=== PATIENT | female | born 1985 | race Caucasian/White ===

== ENCOUNTER 2016-05-30 11:35 | Inpatient (IN) ==
[2016-05-30] MEDS ORDERED: NS 1,000 ML IV ONE (12:24)
[2016-05-30] MEDS ORDERED: ASPIRIN PO STA (12:24)
--- NOTE | 2016-05-30 12:30 | EKG Report ---
Test Performed on : 05/30/2016 11:48:54 AM Test Reason : CHEST PAIN Blood Pressure : / mmHG Vent. Rate : 070 BPM Atrial Rate : 070 BPM P-R Int : 160 ms QRS Dur : 082 ms QT Int : 436 ms P-R-T Axes : 031 027 023 degrees QTc Int : 470 ms Normal sinus rhythm. Cannot rule out Anterior infarct , age undetermined Abnormal ECG When compared with ECG of 07-MAY-2016 16:46, CT interval has increased Vent. rate has decreased BY [address] no longer depressed in Inferior leads Non-specific change in ST segment in Lateral leads T wave inversion more evident in Anterior leads Nonspecific T wave abnormality no longer evident in Lateral leads Unconfirmed Result
[2016-05-30 12:42] LABS: MANUAL DIFF NEEDED? NO
[2016-05-30 12:45] LABS: BASO% 0.4 % (0.0-0.8); EOS# 0.12 X1000 (0.0-0.7); EOS% 2.3 % (0.0-10.0); HEMATOCRIT 36.3 % (37.0-47.0); HEMOGLOBIN 11.9 g/dL (12.0-16.0); IMM GRAN# 0.01 X1000 (0.0-0.04); IMM GRAN% 0.2 % (0.0-0.5); LYMPH# 1.62 X1000 (1.2-3.4); LYMPH% 31.2 % (20.5-51.1); MCH 28.4 PG (27-31); MCHC 32.8 g/dL (33-37); MCV 86.6 FL (81-99); MONO# 0.51 X1000 (0.11-0.59); MONO% 9.8 % (1.7-9.3); MPV 10.9 FL (7.4-10.4); NEUT% 56.1 % (42.2-75.2); PLT 269 X1000 (130-400); RBC 4.19 XMIL (4.2-5.4)
[2016-05-30 13:03] LABS: URINE CULTURE PL NEEDED? NO; URINE SOURCE CLEAN CATCH
[2016-05-30 13:03] LABS: AGAP 12; ALKALINE PHOSPHATASE 73 U/L (32-104); BUN 10 mg/dL (8-22); CALCIUM 9.5 mg/dL (8.8-10.2); CHLORIDE 99 mmol/L (98-107); CK PROFILE 47 U/L (24-173); COSMO 271; GOT 25 U/L (10-30); GPT 22 U/L (10-36); MAGNESIUM 1.8 mg/dL (1.5-2.7); POTASSIUM 4.2 mmol/L (3.5-5.1); SODIUM 136 mmol/L (136-145); TCO2 25 mmol/L (25-35); TOTAL PROTEIN 7.4 g/dL (6.3-8.3)
[2016-05-30 13:24] LABS: BILIRUBIN URINE NEGATIVE (NEGATIVE); BLOOD URINE NEGATIVE (NEGATIVE); CLARITY CLEAR (CLEAR); COLOR YELLOW; GLUCOSE URINE NEGATIVE (NEGATIVE); LEUKOCYTES URINE NEGATIVE (NEGATIVE); NITRITE URINE NEGATIVE (NEGATIVE); PROTEIN URINE NEGATIVE (NEGATIVE); UROBILINOGEN URINE NORMAL
[2016-05-30 13:28] LABS: URINE EPITHELIAL CELLS <10 /HPF (<10)
[2016-05-30 13:32] LABS: UR AMPHETAMINES QUAL NONE DETECTED (NONE DETECT); UR BARBITUATES QUAL NONE DETECTED (NONE DETECT); UR BENZODIAZEPIN QUAL NONE DETECTED (NONE DETECT); UR CANNABINOIDS QUAL NONE DETECTED (NONE DETECT); UR COCAINE QUAL NONE DETECTED (NONE DETECT); UR MDMA QUAL NONE DETECTED (NONE DETECT); UR METHADONE QUAL NONE DETECTED (NONE DETECT); UR METHAMPHETAMINE QUAL NONE DETECTED (NONE DETECT); UR OPIATES QUAL PRESUMPTIVE POSITIVE (NONE DETECT); UR OXYCODONE QUAL NONE DETECTED (NONE DETECT); UR PCP QUAL NONE DETECTED (NONE DETECT); UR TCA QUAL NONE DETECTED (NONE DETECT)
--- NOTE | 2016-05-30 13:35 | Diag Imaging Result Document ---
PROCEDURE NAME: CHEST-2 VIEWS - 05/30/2016 2 VIEWS OF THE CHEST: FINDINGS: There is opacification in the left lower lobe which has not changed appreciably since 05/20/2016. This may be associated with some retraction of the diaphragm. There is also a prominent epicardial fat pad on the left. Compared to 05/07/2016 the opacity in the left lower lobe is somewhat more limited in size. IMPRESSION: Left lower lobe opacity which has changed very little since 05/07/2016. Some of this may be due to fibrosis or round atelectasis. Further radiographic follow up is recommended.
--- NOTE | 2016-05-30 13:54 | PROVIDER DOCUMENTATION ---
Addendum entered and electronically signed by Dorothea Richard Scribe 05/30/16 17:27 : Progress - ULTRASOUND (By Radiology) 1 US Study: Lower Ext (venous bilateral) Impression: Abnormal US Results: L leg below the knee - multiple DVTs; R leg - negative for DVT per Dr. Rice Addendum entered and electronically signed by Bharati Rice MD 05/30/16 16:13: Additional Progress - ADDITIONAL PLAN OF CARE/RESULTS Additional Progress/Plan/Lab Results: Dr. Branham agrees with ER management plan for the high dose Heparin drip. Will admit to ICU. Addendum entered and electronically signed by Dorothea Richard Scribe 05/30/16 16:10 : Progress - CONSULTS/PCP/HOSPITALIST Notification #1 *Consult/PCP/Hospitalist*: Dr. Branham Time Discussed: 16:08 (Dr. Branham accepted admit ) Reason/Comments: Dr. Rice consulted Dr. Branham about admit of Pt Consult Disposition: Admit Original Note: HPI-Chest Pain - General Source: patient - History of Present Illness-CP Location: reports: central Chest Pain Radiation: reports: no radiation Quality of Pain: reports: pressure Severity in ED: mild Onset/Duration: 4-6 hours ago Timing: still present Context/Activities at Onset: reports: light activity Modifying Factors: improves with: nothing Associated Symptoms: reports: headache, shortness of breath. denies: abdominal pain, back pain, diaphoresis, dizziness, edema, fatigue, fever/chills, heartburn , nausea, rash, swelling/lump in chest, syncope, vomiting, weakness Nitro Today/Relief: no nitro taken today Aspirin Treatment Today: no aspirin today Prior Chest Pain/Cardiac Workup: reports: no prior chest pain, no prior cardiac workup Similar Symptoms Previously?: No Recently Seen Here or By Another Healthcare Provider: No <Dorothea Richard - Last Filed: 05/30/16 15:28> <Bharati Rice - Last Filed: 05/30/16 16:08> - General Chief Complaint: General Adult Stated Complaint: HIGH BP Time Seen by Provider: 05/30/16 12:23 Allergies/Adverse Reactions: Patient Allergies Allergy/AdvReac Type Severity Reaction Status Date / Time amoxicillin [Amoxicillin] Allergy Intermediate RASH Verified 05/07/16 16:56 ibuprofen Allergy Intermediate SWELLING Verified 05/07/16 16:56 egg Allergy Unknown Verified 05/07/16 16:56 influenza virus vaccine, Allergy SWELLING Verified 05/07/16 16:56 specific [influenza virus vacc,specific] ketorolac tromethamine * Allergy SWELLING Verified 05/07/16 16:56 [From Toradol] meperidine HCl * Allergy NAUSEA/VOMI Verified 05/07/16 16:56 [From Demerol] TING midazolam HCl * [From Versed] Allergy SWELLING Verified 05/07/16 16:56 Penicillins Allergy SWELLING Verified 05/07/16 16:56 prochlorperazine Allergy SWELLING Verified 05/07/16 16:56 [From Compazine] prochlorperazine edisylate * Allergy SWELLING Verified 05/07/16 16:56 [From Compazine] prochlorperazine maleate * Allergy SWELLING Verified 05/07/16 16:56 [From Compazine] promethazine HCl * Allergy RASH Verified 05/07/16 16:56 [From Phenergan] propofol Allergy SWELLING Verified 05/07/16 16:56 tramadol HCl * [From Ultram] Allergy Unknown Verified 05/07/16 16:56 morphine AdvReac HIVES Verified 05/30/16 13:01 nalbuphine HCl * AdvReac Unknown Verified 05/07/16 16:56 [From Nubain] Home Medications: Home Medication List Medication Instructions Recorded Confirmed Last Taken Type Albuterol Sulfate Inhaler 2 puff INH Q6H PRN PRN 05/31/15 05/07/16 07/11/15 15: 00 History [Ventolin Hfa] Clonazepam [Klonopin] 0.5 mg PO BID 07/13/15 05/07/16 12/12/15 History Lisinopril 10 mg PO DAILY 07/13/15 05/07/16 12/12/15 History Ranitidine HCl [Zantac 75] 1 tab PO DAILY 07/13/15 05/07/16 07/13/15 07:30 History Vortioxetine Hydrobromide 10 mg PO DAILY 07/13/15 05/07/16 10/19/15 05:30 History [Brintellix] Rtdnx-7-Ejvrzqjdpf Inhibitor 1,000 mg IV DIRECTED 12/12/15 05/07/16 Unknown History [Zemaira] Baclofen 20 mg PO Q8H PRN PRN 12/12/15 05/07/16 Unknown History Divalproex E.r. [Depakote ER] 250 mg PO DAILY 12/12/15 05/07/16 Unknown History Loratadine [Claritin] 10 mg PO DAILY 12/12/15 05/07/16 12/12/15 History Topiramate [Topamax] 100 mg PO BID 12/12/15 05/07/16 Unknown History Hydrocodone/Acetaminophen [[place] 1 each PO Q4-6H PRN PRN #20 tablet 01/12/1609/15 Unknown Rx 5-325 Tablet] Butalb/Acetaminophen/Caffeine 1 each PO 2-4XDAY PRN PRN #30 02/11/16 05/07/16 Unknown Rx [Esgic 50-325-40 mg Tablet] tablet Ondansetron HCl [Zofran] 1 - 2 tab PO Q6H PRN PRN #15 tablet 02/11/16 05/07/16 Unknown Rx Acetaminophen with Codeine 1 each PO TID #12 tablet 05/07/16 Unknown Rx [Tylenol with Codeine #3] Levofloxacin [Levaquin] 750 mg PO DAILY #10 tablet 05/07/16 Unknown Rx Metronidazole [Flagyl] 500 mg PO BID #20 tablet 05/07/16 Unknown Rx Furosemide [Lasix] 40 mg PO DAILY #30 tablet 05/20/16 Unknown Rx - History of Present Illness-CP Nature of Presenting Problem: Pt is 30 y/o F presents to the ED with chest pain. Pt states she was driving when CP started. Pt states hx of anxiety. Pt denies N/V/D. (Dorothea Richard) Review of Systems - Adult - REVIEW OF SYSTEMS - ADULT Constitutional: denies: chills, fever Eyes: denies: blurred vision, double vision Ears, Nose, Mouth & Throat: denies: ear pain, nose pain, throat pain Cardiovascular: reports: chest pain. denies: heart murmur, irregular heart rate Respiratory: reports: shortness of breath. denies: cough, wheezing Gastrointestinal: denies: abdominal pain, diarrhea, nausea, vomiting Genitourinary: denies: dysuria, hematuria Musculoskeletal: denies: bone pain, joint pain, neck pain Integumentary: denies: hives, itching Neurological: reports: headache/migraines (ABAD). denies: dizziness/vertigo Psychiatric: reports: no symptoms reported Endocrine: reports: no symptoms reported Hematologic/Lymphatic: reports: no symptoms reported Allergic/Immunologic: reports: no symptoms reported All Other Systems: Reviewed and Negative <Dorothea Richard - Last Filed: 05/30/16 15:28> Past History - Adult - PAST MEDICAL HISTORY-ADULT Review of Records: reports: Nursing Assessment Review, Medications Reviewed, Social history reviewed & non-contributory. Major Childhood Illnesses: reports: denies history Cardiovascular: reports: HTN Respiratory: reports: asthma, COPD, other (alpha 1) Gastrointestinal: reports: denies history Obstetrical/Gynecological: reports: denies history Genitourinary: reports: denies history Musculoskeletal: reports: denies history Neurological: reports: denies history Psychiatric: reports: anxiety, ptsd, other (panic attack) Endocrine/Immune: reports: denies history Other Conditions: reports: denies history - PRIOR SURGERIES/PROCEDURES Surgical/Procedure History: reports: reviewed, not pertinent, BTL - PRIOR HOSPITALIZATIONS Prior Hospitalizations: reports: none - IMMUNIZATION STATUS Childhood Immunizations: See Nurse Assessment Flu Vaccine: See Nurse Assessment - FAMILY HISTORY Family History: reviewed, not pertinent - SOCIAL HISTORY Smoking: quit greater than 1 year, cigarettes Provider spent 3-5 mins advising pt. on dangers of tobacco.: Discussed manners to quit use, and f/u contacts for add'l counseling. Substance Use: alcohol Alcohol Use Frequency: occasionally Number of drinks per typical drinking period:: 2 drinks Living Situation: family <Dorothea Richard - Last Filed: 05/30/16 15:28> Physical Exam-General - PHYSICAL EXAM-ADULT Initial Vital Signs Reviewed: Yes - CONSTITUTIONAL General Appearance: appears well, alert, no apparent distress - EYES Eyes: PERRL/EOMI, pink conjunctivae, fundi clear, no AV nicking - HEAD, EARS, NOSE, MOUTH & THROAT HENMT: normocephalic/atraumatic, moist mucous membranes, normal ENT inspection, TMs normal, pharynx normal - NECK Neck: non-tender, full range of motion, supple, normal inspection - RESPIRATORY Respiratory: chest non-tender, lungs clear, normal breath sounds, no pleuratic chest pain, no respiratory distress, no accessory muscle use - CARDIOVASCULAR Cardiovascular: normal peripheral pulses, regular rate, rhythm, no edema, no gallop, no JVD, no murmur - GASTROINTESTINAL (ABDOMEN) Abdominal Exam: normal bowel sounds, non tender, soft, no organomegaly, no pulsatile mass - LYMPHATIC Lymphatic: no adenopathy - MUSCULOSKELETAL Back Exam: normal inspection, no CVA tenderness, no vertebral tenderness Extremity: normal range of motion, non-tender, normal gait, normal inspection, no pedal edema, no calf tenderness, normal capillary refill, pelvis stable - SKIN Integumentary: normal color, normal turgor, warm/dry - NEUROLOGIC Neurologic: 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, grossly normal, no motor/sensory deficits - PSYCHIATRIC Psych/Mental Status: normal mood/affect, normal thought content, normal thought process, oriented x 3 <Dorothea Richard - Last Filed: 05/30/16 15:28> Progress - EKG 1 Time of EKG reading by physician:: 11:48 EKG Read and Signed by:: Bharati Rice EKG Interpretation (*Must complete 3 of following elements*): Abnormal Rate: 70 Rhythm: normal sinus rhythm Comments: cannot rule out anterior infarct, age undetermined - XRAY 1 XRAY: Bilateral XRAY Study: Chest Impression: Normal Comparison with other Films: no changes XRAY Interpretation: persistent LLL opacity from 05/07/16 <Dorothea Richard - Last Filed: 05/30/16 15:28> - REASSESSMENT Reassessment #1 Time Reassessed: 16:04 Status: other (Pt will be admitted for b/l PE. Pt refused CT head for headache because she had one done < one month ago and it was notmal. Pt requested pain meds for migranine, which she has h/o. Pt has 1gm Tylenol earlier today. Morphine IV given.) - CT/MRI 2 CT Study: Angiogram (CT chest PE study - b/l large PE per Radiology.) - CONSULTS/PCP/HOSPITALIST Notification Time Discussed: 16:07 Reason/Comments: Admit to Dr. Branham Consult Disposition: Admit <Bharati Rice - Last Filed: 05/30/16 16:08> - PLAN OF CARE/RESULTS Progress/Plan/Lab Results: Laboratory Tests 05/30/16 05/30/16 05/30/16 12:34 12:34 12:34 WBC RBC Hgb Hct MCV MCH MCHC RDW Std Deviation Plt Count MPV Immature Gran % (Auto) Neut % (Auto) Lymph % (Auto) [place] % (Auto) Eos % (Auto) Baso % (Auto) Immature Gran # (Auto) Neut # (Auto) Lymph # (Auto) [place] # (Auto) Eos # (Auto) Baso # (Auto) Sodium 136 Potassium 4.2 Chloride 99 Carbon Dioxide 25 Anion Gap 12 BUN 10 Creatinine 0.7 Estimated GFR/1.73 m2 > 60 BUN/Creatinine Ratio 14 Glucose 94 Calculated Osmolality 271 Calcium 9.5 Magnesium 1.8 Total Bilirubin 0.30 AST 25 ALT 22 Alkaline Phosphatase 73 Creatine Kinase 47 Troponin T < 0.010 Rzu-M-Yanispnbeag Pept 161 Total Protein 7.4 Albumin 4.0 Globulin 3.0 Albumin/Globulin Ratio 1.0 Urine Source Urine Color Urine Clarity Urine pH Ur Specific [place] Urine Protein Urine Ketones Urine Blood Urine Nitrite Urine Bilirubin Urine Urobilinogen Urine Microscopic RBC Urine WBC Ur Epithelial Cells Urine Glucose Urine Test Urine Opiates Screen Ur Oxycodone Screen Urine Methadone Screen Ur Barbituates Screen Ur Tricyclics Screen Ur Phencyclidine Scrn Ur Amphetamines Screen U Methamphetamines Scrn Urine MDMA Screen U Benzodiazepines Scrn Urine Cocaine Screen U Cannabinoids Screen 05/30/16 05/30/16 05/30/16 12:34 12:55 Unknown WBC 5.19 RBC 4.19 L Hgb 11.9 L Hct 36.3 L MCV 86.6 MCH 28.4 MCHC 32.8 L RDW Std Deviation 12.0 Plt Count 269 MPV 10.9 H Immature Gran % (Auto) 0.2 Neut % (Auto) 56.1 Lymph % (Auto) 31.2 [place] % (Auto) 9.8 H Eos % (Auto) 2.3 Baso % (Auto) 0.4 Immature Gran # (Auto) 0.01 Neut # (Auto) 2.91 Lymph # (Auto) 1.62 [place] # (Auto) 0.51 Eos # (Auto) 0.12 Baso # (Auto) 0.02 Sodium Potassium Chloride Carbon Dioxide Anion Gap BUN Creatinine Estimated GFR/1.73 m2 BUN/Creatinine Ratio Glucose Calculated Osmolality Calcium Magnesium Total Bilirubin AST ALT Alkaline Phosphatase Creatine Kinase Troponin T Imt-T-Kxgsabgowfc Pept Total Protein Albumin Globulin Albumin/Globulin Ratio Urine Source CLEAN CATCH Urine Color YELLOW Urine Clarity CLEAR Urine pH 7.0 Ur Specific [place] 1.000 Urine Protein NEGATIVE Urine Ketones NEGATIVE Urine Blood NEGATIVE Urine Nitrite NEGATIVE Urine Bilirubin NEGATIVE Urine Urobilinogen NORMAL Urine Microscopic RBC Not Reportable Urine WBC NEGATIVE Ur Epithelial Cells <10 Urine Glucose NEGATIVE Urine Test NEGATIVE Urine Opiates Screen Ur Oxycodone Screen Urine Methadone Screen Ur Barbituates Screen Ur Tricyclics Screen Ur Phencyclidine Scrn Ur Amphetamines Screen U Methamphetamines Scrn Urine MDMA Screen U Benzodiazepines Scrn Urine Cocaine Screen U Cannabinoids Screen 05/30/16 Unknown WBC RBC Hgb Hct MCV MCH MCHC RDW Std Deviation Plt Count MPV Immature Gran % (Auto) Neut % (Auto) Lymph % (Auto) [place] % (Auto) Eos % (Auto) Baso % (Auto) Immature Gran # (Auto) Neut # (Auto) Lymph # (Auto) [place] # (Auto) Eos # (Auto) Baso # (Auto) Sodium Potassium Chloride Carbon Dioxide Anion Gap BUN Creatinine Estimated GFR/1.73 m2 BUN/Creatinine Ratio Glucose Calculated Osmolality Calcium Magnesium Total Bilirubin AST ALT Alkaline Phosphatase Creatine Kinase Troponin T Uuy-E-Dugiwzsivzg Pept Total Protein Albumin Globulin Albumin/Globulin Ratio Urine Source Urine Color Urine Clarity Urine pH Ur Specific [place] Urine Protein Urine Ketones Urine Blood Urine Nitrite Urine Bilirubin Urine Urobilinogen Urine Microscopic RBC Urine WBC Ur Epithelial Cells Urine Glucose Urine Test Urine Opiates Screen PRESUMPTIVE POSITIVE A Ur Oxycodone Screen NONE DETECTED Urine Methadone Screen NONE DETECTED Ur Barbituates Screen NONE DETECTED Ur Tricyclics Screen NONE DETECTED Ur Phencyclidine Scrn NONE DETECTED Ur Amphetamines Screen NONE DETECTED U Methamphetamines Scrn NONE DETECTED Urine MDMA Screen NONE DETECTED U Benzodiazepines Scrn NONE DETECTED Urine Cocaine Screen NONE DETECTED U Cannabinoids Screen NONE DETECTED Orders Category Date Time Status Cardiac Monitoring DIRECTED Care 05/30/16 12:25 Active Saline Loc NOW Care 05/30/16 12:25 Active CHEST-2 VIEWS [RAD] Stat Exams 05/30/16 12:25 Completed CBC WITH ELECTRONIC DIFF [HEME] Stat Lab 05/30/16 12:34 Completed CK PROFILE [SP CHEM] Stat Lab 05/30/16 12:34 Completed COMPREHENSIVE METABOLIC PANEL [CHEM] Stat Lab 05/30/16 12:34 Completed D-DIMER PL [COAG] Stat Lab 05/30/16 12:34 Received MAGNESIUM [CHEM] Stat Lab 05/30/16 12:34 Completed TEST-URINE [PREG] Stat Lab 05/30/16 Completed PRO B-NATRIURETIC PEPTIDE Stat Lab 05/30/16 12:34 Completed TROPONIN T Stat Lab 05/30/16 12:[address] W/POSS RFLX CULT [URINALYSIS] Stat Lab 05/30/16 12:55 Completed URINE DRUG SCREEN PL Stat Lab 05/30/16 Completed 0.9% Sodium Chloride Inj [Ns] 1,000 ml Med 05/30/16 12:24 Discontinued IV 999 mls/hr Aspirin Med 05/30/16 12:24 Discontinued 325 mg PO STAT STA EKG [EKG] Stat Ther 05/30/16 12:25 Draft Vital Signs - 24 hr 05/30/16 11:42 Temperature 97.9 F Pulse Rate 81 Respiratory 18 Rate Blood Pressure 126/61 O2 Sat by Pulse 100 Oximetry Laboratory Tests 05/30/16 05/30/16 05/30/16 12:34 12:34 12:34 WBC RBC Hgb Hct MCV MCH MCHC RDW Std Deviation Plt Count MPV Immature Gran % (Auto) Neut % (Auto) Lymph % (Auto) [place] % (Auto) Eos % (Auto) Baso % (Auto) Immature Gran # (Auto) Neut # (Auto) Lymph # (Auto) [place] # (Auto) Eos # (Auto) Baso # (Auto) Sodium 136 Potassium 4.2 Chloride 99 Carbon Dioxide 25 Anion Gap 12 BUN 10 Creatinine 0.7 Estimated GFR/1.73 m2 > 60 BUN/Creatinine Ratio 14 Glucose 94 Calculated Osmolality 271 Calcium 9.5 Magnesium 1.8 Total Bilirubin 0.30 AST 25 ALT 22 Alkaline Phosphatase 73 Creatine Kinase 47 Troponin T < 0.010 Mjh-L-Wpakzrwdfqj Pept 161 Total Protein 7.4 Albumin 4.0 Globulin 3.0 Albumin/Globulin Ratio 1.0 Urine Source Urine Color Urine Clarity Urine pH Ur Specific [place] Urine Protein Urine Ketones Urine Blood Urine Nitrite Urine Bilirubin Urine Urobilinogen Urine Microscopic RBC Urine WBC Ur Epithelial Cells Urine Glucose Urine Test Urine Opiates Screen Ur Oxycodone Screen Urine Methadone Screen Ur Barbituates Screen Ur Tricyclics Screen Ur Phencyclidine Scrn Ur Amphetamines Screen U Methamphetamines Scrn Urine MDMA Screen U Benzodiazepines Scrn Urine Cocaine Screen U Cannabinoids Screen 05/30/16 05/30/1605/30/17 12:34 12:55 Unknown WBC 5.19 RBC 4.19 L Hgb 11.9 L Hct 36.3 L MCV 86.6 MCH 28.4 MCHC 32.8 L RDW Std Deviation 12.0 Plt Count 269 MPV 10.9 H Immature Gran % (Auto) 0.2 Neut % (Auto) 56.1 Lymph % (Auto) 31.2 [place] % (Auto) 9.8 H Eos % (Auto) 2.3 Baso % (Auto) 0.4 Immature Gran # (Auto) 0.01 Neut # (Auto) 2.91 Lymph # (Auto) 1.62 [place] # (Auto) 0.51 Eos # (Auto) 0.12 Baso # (Auto) 0.02 Sodium Potassium Chloride Carbon Dioxide Anion Gap BUN Creatinine Estimated GFR/1.73 m2 BUN/Creatinine Ratio Glucose Calculated Osmolality Calcium Magnesium Total Bilirubin AST ALT Alkaline Phosphatase Creatine Kinase Troponin T Gws-M-Qvhscrrbvny Pept Total Protein Albumin Globulin Albumin/Globulin Ratio Urine Source CLEAN CATCH Urine Color YELLOW Urine Clarity CLEAR Urine pH 7.0 Ur Specific [place] 1.000 Urine Protein NEGATIVE Urine Ketones NEGATIVE Urine Blood NEGATIVE Urine Nitrite NEGATIVE Urine Bilirubin NEGATIVE Urine Urobilinogen NORMAL Urine Microscopic RBC Not Reportable Urine WBC NEGATIVE Ur Epithelial Cells <10 Urine Glucose NEGATIVE Urine Test NEGATIVE Urine Opiates Screen Ur Oxycodone Screen Urine Methadone Screen Ur Barbituates Screen Ur Tricyclics Screen Ur Phencyclidine Scrn Ur Amphetamines Screen U Methamphetamines Scrn Urine MDMA Screen U Benzodiazepines Scrn Urine Cocaine Screen U Cannabinoids Screen 05/30/16 Unknown WBC RBC Hgb Hct MCV MCH MCHC RDW Std Deviation Plt Count MPV Immature Gran % (Auto) Neut % (Auto) Lymph % (Auto) [place] % (Auto) Eos % (Auto) Baso % (Auto) Immature Gran # (Auto) Neut # (Auto) Lymph # (Auto) [place] # (Auto) Eos # (Auto) Baso # (Auto) Sodium Potassium Chloride Carbon Dioxide Anion Gap BUN Creatinine Estimated GFR/1.73 m2 BUN/Creatinine Ratio Glucose Calculated Osmolality Calcium Magnesium Total Bilirubin AST ALT Alkaline Phosphatase Creatine Kinase Troponin T Ygk-L-Xcllyglegjl Pept Total Protein Albumin Globulin Albumin/Globulin Ratio Urine Source Urine Color Urine Clarity Urine pH Ur Specific [place] Urine Protein Urine Ketones Urine Blood Urine Nitrite Urine Bilirubin Urine Urobilinogen Urine Microscopic RBC Urine WBC Ur Epithelial Cells Urine Glucose Urine Test Urine Opiates Screen PRESUMPTIVE POSITIVE A Ur Oxycodone Screen NONE DETECTED Urine Methadone Screen NONE DETECTED Ur Barbituates Screen NONE DETECTED Ur Tricyclics Screen NONE DETECTED Ur Phencyclidine Scrn NONE DETECTED Ur Amphetamines Screen NONE DETECTED U Methamphetamines Scrn NONE DETECTED Urine MDMA Screen NONE DETECTED U Benzodiazepines Scrn NONE DETECTED Urine Cocaine Screen NONE DETECTED U Cannabinoids Screen NONE DETECTED Laboratory Tests 05/30/16 05/30/16 05/30/16 12:34 12:34 12:34 WBC RBC Hgb Hct MCV MCH MCHC RDW Std Deviation Plt Count MPV Immature Gran % (Auto) Neut % (Auto) Lymph % (Auto) [place] % (Auto) Eos % (Auto) Baso % (Auto) Immature Gran # (Auto) Neut # (Auto) Lymph # (Auto) [place] # (Auto) Eos # (Auto) Baso # (Auto) D-Dimer Sodium 136 Potassium 4.2 Chloride 99 Carbon Dioxide 25 Anion Gap 12 BUN 10 Creatinine 0.7 Estimated GFR/1.73 m2 > 60 BUN/Creatinine Ratio 14 Glucose 94 Calculated Osmolality 271 Calcium 9.5 Magnesium 1.8 Total Bilirubin 0.30 AST 25 ALT 22 Alkaline Phosphatase 73 Creatine Kinase 47 Troponin T < 0.010 Ihh-D-Sxfvyqimbdm Pept 161 Total Protein 7.4 Albumin 4.0 Globulin 3.0 Albumin/Globulin Ratio 1.0 Urine Source Urine Color Urine Clarity Urine pH Ur Specific [place] Urine Protein Urine Ketones Urine Blood Urine Nitrite Urine Bilirubin Urine Urobilinogen Urine Microscopic RBC Urine WBC Ur Epithelial Cells Urine Glucose Urine Test Urine Opiates Screen Ur Oxycodone Screen Urine Methadone Screen Ur Barbituates Screen Ur Tricyclics Screen Ur Phencyclidine Scrn Ur Amphetamines Screen U Methamphetamines Scrn Urine MDMA Screen U Benzodiazepines Scrn Urine Cocaine Screen U Cannabinoids Screen 05/30/16 05/30/16 05/30/16 12:34 12:34 12:55 WBC 5.19 RBC 4.19 L Hgb 11.9 L Hct 36.3 L MCV 86.6 MCH 28.4 MCHC 32.8 L RDW Std Deviation 12.0 Plt Count 269 MPV 10.9 H Immature Gran % (Auto) 0.2 Neut % (Auto) 56.1 Lymph % (Auto) 31.2 [place] % (Auto) 9.8 H Eos % (Auto) 2.3 Baso % (Auto) 0.4 Immature Gran # (Auto) 0.01 Neut # (Auto) 2.91 Lymph # (Auto) 1.62 [place] # (Auto) 0.51 Eos # (Auto) 0.12 Baso # (Auto) 0.02 D-Dimer 6.74 H Sodium Potassium Chloride Carbon Dioxide Anion Gap BUN Creatinine Estimated GFR/1.73 m2 BUN/Creatinine Ratio Glucose Calculated Osmolality Calcium Magnesium Total Bilirubin AST ALT Alkaline Phosphatase Creatine Kinase Troponin T Sdq-H-Lxgbcmviofp Pept Total Protein Albumin Globulin Albumin/Globulin Ratio Urine Source CLEAN CATCH Urine Color YELLOW Urine Clarity CLEAR Urine pH 7.0 Ur Specific [place] 1.000 Urine Protein NEGATIVE Urine Ketones NEGATIVE Urine Blood NEGATIVE Urine Nitrite NEGATIVE Urine Bilirubin NEGATIVE Urine Urobilinogen NORMAL Urine Microscopic RBC Not Reportable Urine WBC NEGATIVE Ur Epithelial Cells <10 Urine Glucose NEGATIVE Urine Test Urine Opiates Screen Ur Oxycodone Screen Urine Methadone Screen Ur Barbituates Screen Ur Tricyclics Screen Ur Phencyclidine Scrn Ur Amphetamines Screen U Methamphetamines Scrn Urine MDMA Screen U Benzodiazepines Scrn Urine Cocaine Screen U Cannabinoids Screen 05/30/16 05/30/16 Unknown Unknown WBC RBC Hgb Hct MCV MCH MCHC RDW Std Deviation Plt Count MPV Immature Gran % (Auto) Neut % (Auto) Lymph % (Auto) [place] % (Auto) Eos % (Auto) Baso % (Auto) Immature Gran # (Auto) Neut # (Auto) Lymph # (Auto) [place] # (Auto) Eos # (Auto) Baso # (Auto) D-Dimer Sodium Potassium Chloride Carbon Dioxide Anion Gap BUN Creatinine Estimated GFR/1.73 m2 BUN/Creatinine Ratio Glucose Calculated Osmolality Calcium Magnesium Total Bilirubin AST ALT Alkaline Phosphatase Creatine Kinase Troponin T Zoc-V-Sjnpceaqmdi Pept Total Protein Albumin Globulin Albumin/Globulin Ratio Urine Source Urine Color Urine Clarity Urine pH Ur Specific [place] Urine Protein Urine Ketones Urine Blood Urine Nitrite Urine Bilirubin Urine Urobilinogen Urine Microscopic RBC Urine WBC Ur Epithelial Cells Urine Glucose Urine Test NEGATIVE Urine Opiates Screen PRESUMPTIVE POSITIVE A Ur Oxycodone Screen NONE DETECTED Urine Methadone Screen NONE DETECTED Ur Barbituates Screen NONE DETECTED Ur Tricyclics Screen NONE DETECTED Ur Phencyclidine Scrn NONE DETECTED Ur Amphetamines Screen NONE DETECTED U Methamphetamines Scrn NONE DETECTED Urine MDMA Screen NONE DETECTED U Benzodiazepines Scrn NONE DETECTED Urine Cocaine Screen NONE DETECTED U Cannabinoids Screen NONE DETECTED (Dorothea Richard) Departure - Departure Time of Disposition Order: 14:43 Certified Medical Emergency: Emergent <Dorothea Richard - Last Filed: 05/30/16 15:28> - Departure Time of Disposition Order: 16:02 Certified Medical Emergency: Emergent <Bharati Rice - Last Filed: 05/30/16 16:08> - Departure DIAGNOSIS: Atypical chest pain, Anxiety Pulmonary emboli Qualifiers: Pulmonary embolism type: other Chronicity: acute Acute cor pulmonale presence: without acute cor pulmonale Qualified Code(s): I26.99 - Other pulmonary embolism without acute cor pulmonale Disposition: ADMITTED INPATIENT 09 Condition: Serious Additional Instructions: ED Follow Up Instructions: You have been treated by a care provider in the Emergency Department. These instructions are being provided to you so you can have an understanding of how to care for yourself upon discharge. Upon discharge from the Emergency Department, you are responsible for making arrangements for follow-up care by a physician of your choice. Take all prescribed medications as directed. Return to the Emergency Department immediately for any new or worsening symptoms. You may call the Physician Referral phone number at [phone] to obtain a list of Physicians who are taking new patients. Referrals: Isabel Tilley [Primary Care Provider] - Forms: Return to School/Parent Work Instructions: Panic Attacks, Ddtj-vd-Ckqi, Nonspecific Chest Pain Attestation - Scribe Verification/Attestation Scribe:: Dorothea Richard Acting as Scribe for:: Bharati Rice Scribe documention review:: This chart was documented by a scribe and accurately reflects the service the provider performed and the decisions made by the provider. <Dorothea Richard - Last Filed: 05/30/16 15:28> Physician Attestation
[2016-05-30] MEDS ORDERED: TYLENOL PO ONE (14:08)
[2016-05-30] MEDS ORDERED: ATIVAN PO ONE (14:08)
[2016-05-30] MEDS ORDERED: ULTRAM ONE (15:57)
[2016-05-30] MEDS ORDERED: HEPARIN 25,000 UNITS/D5W 250 ML ONE (16:01)
[2016-05-30] MEDS ORDERED: HEPARIN ONE (16:02)
[2016-05-30] MEDS ORDERED: HEPARIN IV ONE (16:11)
[2016-05-30] MEDS ORDERED: HEPARIN 25,000 UNITS/D5W 250 ML IV SCH (16:15)
[2016-05-30 16:37] LABS: INR 0.91 (0.86-1.15); PROTIME 12.6 Seconds (12.1-15.5)
--- NOTE | 2016-05-30 16:41 | Diag Imaging Result Document ---
PROCEDURE NAME: ANGIOGRAM/PULMONARY ARTERIES - 05/30/2016 CT ANGIOGRAM OF THE PULMONARY ARTERIES WITH IV CONTRAST: INDICATION: Chest pain and elevated D-dimer. FINDINGS: There is appropriate opacification of the pulmonary arteries. There are large proximal filling defects within the main pulmonary arteries bilaterally extending into the segmental branches consistent with acute bilateral pulmonary emboli. There is a small left effusion. There is increased peripheral attenuation within the left lower lobe and peripheral left upper lobe consistent with atelectasis, infarct, or hemorrhage. No pneumothorax. No evidence for aortic aneurysm or dissection. There is borderline cardiomegaly. There is incidental cholelithiasis only partially visualized on this study. Verbal report was given to Dr. Rice at 3:55 p.m. on 05/30/2016 with read back verification. IMPRESSION: 1. Large proximal bilateral pulmonary emboli. 2. Peripheral pulmonary consolidation in the left upper and left lower lobes which may represent atelectasis, hemorrhage or infarct. 3. Small left effusion. 4. Incidental cholelithiasis. [facility]
[2016-05-30] MEDS ORDERED: NORCO-10 ONE (16:59)
[2016-05-30 17:44] LABS: PTT HEPARIN PROTOCOL PL 29.7 Seconds
[2016-05-30] MEDS ORDERED: NORCO-10 PO ONE (17:53)
[2016-05-30] MEDS ORDERED: MORPHINE IV PRN (19:11)
[2016-05-30] MEDS ORDERED: MORPHINE IV ONE (19:11)
[2016-05-30] MEDS ORDERED: DUONEB (A & A) INH PRN (20:42)
[2016-05-30] MEDS ORDERED: TYLENOL PO PRN (20:42)
--- NOTE | 2016-05-30 20:47 | HISTORY AND PHYSICAL ---
SUBJECTIVE: Patient has no focal complaints. CHIEF COMPLAINT: Chest pain, shortness of breath. HISTORY OF PRESENT ILLNESS: This is a 30-year-old female with alpha 1 antitrypsin deficiency who came in from home with acute shortness of breath and hypoxia. She was evaluated in the ER with chest pain, had a very elevated D-dimer and CTA revealed a pulmonary embolus. Apparently, she was driving when the chest pains started. It was right-sided, radiating to the back. She does have a history of anxiety. Apparently 2-3 weeks ago she was started on Lopressor. It caused significant swelling or at least that was attributing her swelling. Per her significant other, he states that she really was not able to get out of bed. Essentially she was bed-bound for several days. She had swelling in her legs. Gradually that resolved over the last 2 weeks, but she did have a prolonged episode of immobilization and getting up and around was difficult. Patient is not on any hormonal supplements, she does not use tobacco and there is no family history of DVT. Workup in the ER again revealed acute bilateral PE with pulmonary infarcts and she was admitted for treatment. PAST MEDICAL HISTORY: 1. COPD alpha 1 anti trypsin deficiency. 2. Migraines. 3. PTSD and anxiety disorder. 4. Hypertension. PAST SURGICAL HISTORY: She has had BTL. She has cervical disk disease, but I do not think she has had any issues there. SOCIAL HISTORY: No tobacco. Occasional alcohol. ALLERGIES: Amoxicillin, ibuprofen, egg, influenza, Toradol, Demerol, midazolam , penicillin, prochlorperazine, promethazine, propofol, tramadol, morphine, Nubain. MEDICATION LIST: Being compiled. REVIEW OF SYSTEMS: Otherwise negative times a 10 point review of systems except as mentioned in the HPI. She was treated here for a pneumonia about 2 weeks ago. In any case, patient today admitted for DVT/PE. PHYSICAL EXAMINATION: VITAL SIGNS: Blood pressure was 126/61, heart rate of 81, respiratory rate 18, temperature 97.9 degrees. GENERAL: A well-developed female, in no acute distress. HEAD: Normocephalic, atraumatic. EYES: Pupils equal, round, reactive to light. Extraocular movements were intact. EAR/NOSE/THROAT: Moist mucous membranes. NECK: Supple. CARDIOVASCULAR: Regular rate and rhythm. No murmurs, gallops, or rubs. PULMONARY: Bilateral breath sounds. Clear to auscultation. GI: Soft, nontender, nondistended. Bowel sounds are positive. EXTREMITIES: No clubbing or cyanosis. LYMPHATICS: No peripheral edema. NEUROLOGICAL: Nonfocal. LABORATORY DATA: White count of 5, hemoglobin and hematocrit 11 and 36, platelets were normal. Chemistry showed normal chemistries, blood gas was not done. D-dimer 6.74, coagulase okay. Urine was clear. Urine drug screen positive for opiates. PROBLEM LIST: This is a 30-year-old female with a acute pulmonary embolus/ venous thromboembolism. 1)ACUTE PE/DVT - It sounds like she probably has a left lower extremity deep venous thrombosis. We will continue anticoagulation and follow. Transition her to Lovenox tomorrow. Continue pain control and follow. I think she needs a hypercoagulable workup. It is unclear, although she had a prolonged episode of a mobilization why she spontaneously had deep venous thrombosis at a fairly early age. Pursue echo to evaluate for right ventricular strain and follow clinically. 2. Alpha 1 antitrypsin. She actually seems like she is breathing stable condition. Continue to follow. 3. Hypertension. We will continue her regular medications once stabilized. 4. Migraines. We will continue prophylaxis treatment and follow. [facility]
[2016-05-30] MEDS: DILAUDID IV PRN (21:09)
--- NOTE | 2016-05-30 21:18 | CONSULTATION ---
DATE OF CONSULTATION: 05/30/2016 CHIEF COMPLAINT: Shortness of breath and chest pain. REASON FOR CONSULTATION: Bilateral pulmonary embolism. HISTORY OF PRESENTING ILLNESS: Ms. Fisher is a 30-year-old female with past medical history significant for chronic pain, migraine headaches and anxiety, who was apparently in her usual state of health until this morning when she started having significant shortness of breath associated with chest pain especially on deep inspiration. She was evaluated in the emergency room and was noted to have bilateral pulmonary embolism with possible pulmonary infarction on the left side with a small pleural effusion. Pulmonary consultation was requested for further evaluation. Patient mentions that her symptoms started a few weeks ago. She was recently hospitalized [facility] in [place] for pneumonia. Following discharge from her hospitalization patient was noted to have significant leg edema. She was evaluated in the emergency room and was treated with Lasix. She was doing fairly well until today when she started having significant respiratory distress and shortness of breath with minimal exertion. Patient denies any history of pulmonary embolism in the past. No history of miscarriages. No history of significant immobilization. Patient is currently not smoking. She does not take any blood control pills. She denies any history of malignancy. FAMILY HISTORY: Negative for pulmonary embolism. ALLERGIES: Multiple, amoxicillin, ibuprofen. PAST MEDICAL HISTORY: Anxiety, depression, migraine headaches. SOCIAL HISTORY: Patient lives with her family. She denies any history of smoking, alcohol or drug use. PAST SURGICAL HISTORY: Unremarkable. PHYSICAL EXAMINATION: Vital Signs: Blood pressure was 126/61, respiratory rate 18, pulse rate 81, temperature 97 degrees, oxygen saturation 100% on room air. General: Patient appears to be anxious not in significant distress. Heart: S1-S2 heard. Lungs: Minimal crackles at the bases especially on the left side. Abdomen: Soft. Extremities: Trace edema. LABS: White count 5000, hemoglobin 11.9, hematocrit 36, platelet count 269. PT is 12.6. INR is 0.9. Chemistry: Sodium 136, potassium 4.2, chloride 99, CO2 25, BUN 10, creatinine 0.7, calcium 9.8, magnesium 1.8. LFTs within normal limits. Troponin was 0.010. ProBNP was 161. MEDICATIONS: She is on a heparin drip, Ativan, morphine IV q.4 hours, IV fluids. CT IMAGING: Large proximal bilateral pulmonary embolism noted. pulmonary consolidation in the left upper and left lower lobes may represent an infarction. ASSESSMENT AND PLAN: 1. Bilateral massive pulmonary embolism. 2. Pulmonary infarction. PLAN- 1. Pulmonary embolism- I reviewed the CT images with Dr. Branham. Continue current management with heparin for anticoagulation. Agree with hypercoagulable workup. Patient will also need age-appropriate cancer screening. Patient does not have any obvious risk factors such as previous history of blood clots, hormonal therapy or smoking. However given her recent hospitalization and treatment for pneumonia, I believe that it might have triggered the pulmonary embolism to DVT. We will follow the results of lower extremity Dopplers. Troponin and proBNP appear to be within normal limits. I will order an echocardiogram for further evaluation of right ventricle and rule out RV strain. 2. Pulmonary Infarction- Continue supportive care with incentive spirometry, pain control and oxygen. Patient will need repeat CT chest in 2-3 months to monitor for resolution of blood clots.She will also need follow up with oncologist after discharge for a hypercoagulable workup. Thank you for allowing me to take care of Ms Fisher. [facility]
[2016-05-30] MEDS: DUONEB (A & A) INH SCH (23:17)
[2016-05-30] MEDS ORDERED: HEPARIN IV PRN (23:21)
[2016-05-30] MEDS: KLONOPIN PO SCH (23:40)
[2016-05-30] MEDS: ZOFRAN IV PRN (23:41)
[2016-05-31] MEDS ORDERED: HEPARIN 25,000 UNITS/D5W 250 ML IV SCH
[2016-05-31] MEDS: DILAUDID IV PRN ×7 (00:21→20:38)
[2016-05-31] MEDS: DUONEB (A & A) INH SCH ×2 (04:47→08:43)
[2016-05-31 06:07] LABS: HEMATOCRIT 35.4 % (37.0-47.0); HEMOGLOBIN 11.1 g/dL (12.0-16.0); MCH 27.8 PG (27-31); MCHC 31.4 g/dL (33-37); MCV 88.7 FL (81-99); MPV 11.3 FL (7.4-10.4); RBC 3.99 XMIL (4.2-5.4)
[2016-05-31 06:37] LABS: AGAP 11; BUN 10 mg/dL (8-22); CALCIUM 9.1 mg/dL (8.8-10.2); CHLORIDE 101 mmol/L (98-107); COSMO 273; POTASSIUM 3.3 mmol/L (3.5-5.1); SODIUM 137 mmol/L (136-145); TCO2 25 mmol/L (25-35)
[2016-05-31] MEDS: KLONOPIN PO SCH ×3 (07:26→23:03)
[2016-05-31] MEDS ORDERED: KLOR-CON PO ONE (10:59)
[2016-05-31] MEDS: ZOFRAN IV PRN (11:31)
--- NOTE | 2016-05-31 11:34 | PROGRESS NOTE ---
DATE: 05/31/2016 SUBJECTIVE: The patient has no complaints. OBJECTIVE: Vital Signs: Blood pressure 100/74, heart rate of 84, respiratory rate 26, temperature 97.4 degrees, satting 99% on room air. Cardiovascular: Regular rate and rhythm. Pulmonary: Bilateral breath sounds. Clear to auscultation. GI: Soft, nontender, nondistended. Bowel sounds were positive. She is still complaining of diffuse pain. PROBLEM LIST: 1. Acute pulmonary embolism, deep vein thrombosis: We will switch her from heparin to Lovenox. Clinically, I feel she is stable despite her large pulmonary embolism. She has no evidence of respiratory virus strain or other process. Echocardiogram is pending. Doppler final read is pending. We will continue to follow. 2. Chronic pain disorder: She has significant pain. She is very focused on her pain medication, wanting it scheduled. She wants it despite hypotension. It is just very much a focus, and I am not sure if there were pain issues that were causing sedation that prevented her from getting up and around. 3. Hypertension: She has been on the hypotensive side. So, I am going to hold her lisinopril and follow. DISPOSITION: Clinically she appears improved, so I think she could probably go out to the floor today. Hypercoagulable workup is pending. She will need home O2. She will need some different things. She may need home O2 and assistance with medications. We will continue to follow.
[2016-05-31] MEDS: ZANTAC PO SCH ×2 (12:16→23:03)
[2016-05-31] MEDS: NS 1,000 ML IV SCH (12:16)
[2016-05-31] MEDS: LOVENOX SUBQ SCH (17:10)
[2016-05-31] MEDS: TOPAMAX PO SCH ×2 (17:11→20:49)
--- NOTE | 2016-05-31 17:12 | ECHO REPORT ---
ORDER DATE: 05/31/2016 INDICATION: A 30-year-old female with chest pain, deep venous thrombosis, and shortness of breath. M-MODE MEASUREMENTS: Right ventricle: 3.0 cm. Left ventricle end diastole: 3.8 cm. Left ventricle end systole: 2.4 cm. Posterior wall: 1.0 cm. Interventricular septum: 1.0 cm. Left atrium: 3.0 cm. Aortic root: 3.4 cm. SUMMARY OF 2-DIMENSIONAL IMAGIN. Left ventricular systolic function is normal. Ejection fraction is estimated at 65%. 2. No wall motion abnormality is noted. 3. The right ventricle appears to be mildly enlarged and shows normal function. 4. The tricuspid valve shows a very trivial degree of regurgitation. 5. The inferior vena cava appears to be slightly prominent with decreased respiratory variation. 6. The pulmonary pressure is estimated to be somewhere in the range of 43 mmHg to 48 mmHg. 7. The pulmonic valve is normal. Color flow mapping is unremarkable. 8. The mitral valve looks normal. Color flow mapping is unremarkable. 9. Pulse wave Doppler of mitral inflow is normal. 10.Tissue Doppler of septal and lateral mitral annulus averages 10 cm. 11.Pulse wave Doppler of pulmonary venous flow is normal. 12.There is no diastolic dysfunction. 13.The aortic valve looks normal. Color flow mapping is unremarkable. 14.There is no pericardial effusion and no sign of thrombus. SUMMARY: In summary, this study shows: 1. Normal left ventricular systolic function. 2. No evidence of any significant valvular abnormality. 3. Pulmonary pressure estimated at 43 mmHg to 48 mmHg. 4. No diastolic dysfunction. 5. Incidental finding of gallstones in this case.
[2016-05-31] MEDS ORDERED: ZANTAC PO SCH (21:00)
[2016-05-31] MEDS ORDERED: PNEUMOVAX 23 IM ONE (22:53)
[2016-05-31] MEDS: NORCO-5 PO PRN (23:02)
[2016-06-01] MEDS: DILAUDID IV PRN ×7 (00:09→23:54)
--- NOTE | 2016-06-01 03:58 | PROGRESS NOTE ---
DATE: 05/31/2016 SUBJECTIVE: Patient seen and examined this evening. Shortness of breath and chest pain has improved slightly. No fevers. REVIEW OF SYSTEMS: Negative for any nausea, vomiting, dizziness. OBJECTIVE: Vital Signs: Blood pressure 120/76, heart rate in the 80s, respiratory rate was 16 to 20, temperature 97 degrees, oxygen saturation 99% on room air. Heart: S1-S2 heard. Lungs: Clear bilaterally. Abdomen: Soft. Extremities: Trace edema. 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 DIAGNOSTIC DATA: Echocardiogram shows normal LV and right ventricular function. Right ventricle is mildly enlarged. Labs this morning, white count is 4.7, hemoglobin 11.1, hematocrit 35. Sodium 137, potassium 3.3, BUN 10, creatinine 0.7. MEDICATIONS: Albuterol, Klonopin, Lovenox, Flonase, Lasix, Dilaudid, lisinopril, Claritin, heparin drip and Topamax. ASSESSMENT AND PLAN: 1. Bilateral large pulmonary embolism 2. Deep vein thrombosis. 3. Chronic pain. PLAN: 1. Recommend continuing anticoagulation with Lovenox. Patient might need to be switched to oral anticoagulation prior to discharge. We will follow hypercoagulable workup. Discussed with the patient that she will need anticoagulation for 3-6 months. 2. We will need outpatient evaluation by Oncology for age-appropriate malignancy workup as well as hypercoagulable workup. Repeat CT chest in 3 months to monitor the clot burden. 3. Advised the patient that she is stable for ambulation.
[2016-06-01] MEDS: LOVENOX SUBQ SCH (06:08)
[2016-06-01] MEDS: NORCO-5 PO PRN ×3 (06:29→18:51)
[2016-06-01 06:46] LABS: AGAP 10; ALBUMIN 4.2 g/dL (3.5-5.0); ALKALINE PHOSPHATASE 79 U/L (32-104); BUN 7 mg/dL (8-22); CALCIUM 9.8 mg/dL (8.8-10.2); CHLORIDE 102 mmol/L (98-107); COSMO 273; DIRECT BILIRUBIN < 0.20 mg/dL (0.00-0.20); GOT 26 U/L (10-30); GPT 23 U/L (10-36); POTASSIUM 4.6 mmol/L (3.5-5.1); SODIUM 138 mmol/L (136-145); TCO2 26 mmol/L (25-35); TOTAL BILIRUBIN < 0.15 mg/dL (0.20-1.00); TOTAL PROTEIN 7.7 g/dL (6.3-8.3)
[2016-06-01 06:49] LABS: HEMATOCRIT 38.5 % (37.0-47.0); MCH 27.8 PG (27-31); MCHC 31.2 g/dL (33-37); MCV 89.1 FL (81-99); MPV 11.5 FL (7.4-10.4); RBC 4.32 XMIL (4.2-5.4)
--- NOTE | 2016-06-01 07:21 | Extremity Venous Study ---
PROCEDURE NAME: Venous U/S Bilateral Legs - 05/30/2016 BILATERAL LOWER EXTREMITY VENOUS DOPPLER ULTRASOUND: COMPARISON: None. FINDINGS: There are 2 large complicated cystic areas in the popliteal fossa on the right compatible with Estrada's cyst. The venous structures are patent on the right side. On the left side, there is exclusive, nearly occlusive thrombus throughout the popliteal, posterior tibial, and coronal veins. This extends to the gastrocnemius and soleal veins. There is also thrombosis of the left lesser saphenous vein. IMPRESSION: 1. Extensive deep and superficial venous thrombosis on the left side. 2. 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
[2016-06-01] MEDS: KLONOPIN PO SCH ×3 (08:37→23:43)
[2016-06-01] MEDS: FLONASE NAS SCH (09:00)
[2016-06-01] MEDS: ANTIVERT PO SCH (09:54)
[2016-06-01] MEDS: CLARITIN PO SCH (09:55)
[2016-06-01] MEDS: ZANTAC PO SCH ×2 (09:55→21:12)
[2016-06-01] MEDS: TOPAMAX PO SCH ×2 (09:57→21:12)
[2016-06-01] MEDS: PRINIVIL PO SCH (14:30)
--- NOTE | 2016-06-01 14:59 | PROGRESS NOTE ---
DATE: 06/01/2016 SUBJECTIVE: Patient has no focal complaints except for chest pain and leg pain. OBJECTIVE: Vital signs: Blood pressure 122/79, heart rate of 84, respiratory 18, temperature 97.7 degrees, 100% on 2 L. Cardiovascular: Regular rate and rhythm. Pulmonary: Bilateral breath sounds. Clear to auscultation. GI: Soft, nontender, nondistended. Bowel sounds are positive. Extremities: No clubbing or cyanosis. Lymphatics: No peripheral edema. Neurological: Nonfocal. LABORATORY DATA: White count is normal. Platelets normal. Chemistry is unremarkable. Homocystine is negative. Her protein antithrombin 3, protein C and S were all negative. PROBLEM LIST: 1. Acute DVT PE. We will continue treatment. The patient is clinically stabilizing. I am going to switch her to Xarelto this evening and we will continue to follow. 2. Migraines, appears to be stable. 3. Disposition. Likely discharge tomorrow if she is doing some ambulation. If things stabilize likely discharge tomorrow.
[2016-06-01] MEDS: XARELTO PO SCH (18:51)
[2016-06-01] MEDS: NS 1,000 ML IV SCH (19:37)
[2016-06-02] MEDS: DUONEB (A & A) INH SCH (03:23)
[2016-06-02] MEDS: DILAUDID IV PRN ×4 (05:22→13:48)
[2016-06-02 06:39] LABS: HEMATOCRIT 37.6 % (37.0-47.0); HEMOGLOBIN 11.7 g/dL (12.0-16.0); MCH 27.6 PG (27-31); MCHC 31.1 g/dL (33-37); MCV 88.7 FL (81-99); MPV 11.3 FL (7.4-10.4); RBC 4.24 XMIL (4.2-5.4)
[2016-06-02 06:58] LABS: AGAP 11; BUN 10 mg/dL (8-22); CALCIUM 9.6 mg/dL (8.8-10.2); CHLORIDE 101 mmol/L (98-107); COSMO 273; POTASSIUM 3.8 mmol/L (3.5-5.1); SODIUM 137 mmol/L (136-145); TCO2 25 mmol/L (25-35)
[2016-06-02] MEDS: TOPAMAX PO SCH ×2 (07:45→09:33)
[2016-06-02] MEDS: FLONASE NAS SCH ×2 (07:45→09:34)
[2016-06-02] MEDS: CLARITIN PO SCH ×2 (07:46→09:34)
[2016-06-02] MEDS: PRINIVIL PO SCH ×2 (07:46→09:33)
[2016-06-02] MEDS: KLONOPIN PO SCH (07:46)
[2016-06-02] MEDS: XARELTO PO SCH (07:46)
[2016-06-02] MEDS: LASIX PO SCH ×2 (07:46→09:33)
[2016-06-02] MEDS: ZANTAC PO SCH ×2 (07:46→09:33)
[2016-06-02] MEDS: ANTIVERT PO SCH ×2 (07:47→09:33)
[2016-06-02 08:21] VITALS: BP 112/70
[2016-06-02] MEDS ORDERED: LASIX PO SCH (09:00)
--- NOTE | 2016-06-02 18:05 | DISCHARGE SUMMARY ---
ADMISSION DATE: 05/30/2016 DISCHARGE DATE: 06/02/2016 DISCHARGE DIAGNOSES: 1. Acute pulmonary embolism, bilateral pulmonary embolism right and left pulmonary artery with likely pulmonary infarct. 2. Deep vein thrombosis of the left lower extremity involving the popliteal, posterior tibial and I think peroneal veins, I do not think there is a coronal vein I think that was a misinterpretation and soleal veins. She also has thrombus of the lesser saphenous vein. 3. Asymptomatic cholelithiasis. HOSPITAL COURSE: The patient was initially placed on I believe heparin then we transitioned her continuous unfractionated heparin then we transitioned her to Lovenox and then we transitioned her to Xarelto which we got finely approval for outpatient Xarelto. Heart rate has been stable she has been not hypoxic during her course 96-100% on room air. Able to ambulate without difficulty. She was felt stable for discharge on the and will follow up with her PCP who is Dr. Moni Tilley about further workup. Her hypercoagulable workup so far negative antithrombin, VP SOFTWARE activity those levels were normal, her phospholipid antibody is also negative and I believe her homocystine level is normal. Still waiting for her prothrombin gene mutation, factor V Leiden and lupus inhibitor. Those are all pending. DISCHARGE DIAGNOSIS: The same. DISCHARGE MEDS: Ventolin q.6, Klonopin 2 q.8, lisinopril 10 daily, Zantac 150 b.i.d., alpha 1 protease inhibitor as directed, Claritin 10 daily, Topamax 50 b.i.d., Antivert 25 daily, Flonase daily, Lasix 40 every other day may consider doing that daily until her swelling is better, [place] 10 q.6 p.r.n. pain dispense 30, Xarelto 15 b.i.d. for 3 weeks and then 20 daily. DISCHARGE CONDITION: Stable. TIME SPENT: 32 minute discharge. Alternatively she had cholelithiasis. Dr. Cisse's recommendation because she was consulted no surgery for at least 3 months unless she is symptomatic. She was told to monitor low-fat diet, come back for nausea, vomiting, abdominal pain or jaundice. Her liver associated enzymes here I believe yes are unremarkable. They were done on the and there was no evidence of cholecystitis, just cholelithiasis.
== END 2016-06-02 14:45 | disposition home or self-care (01) | DRG 176 ==
LOC: P.ED 11:35 → P.EDIPHOLD 11:36 → P.ICU 20:25 → P.MEDSURG 05-31 12:51
PROVIDERS: ATTEND Internal Medicine
PROC: 3E033GC Introduction of Other Therapeutic Substance into Peripheral Vein, Percutaneous Approach (ICD-10-PCS; principal; 2016-05-30)
DX: I26.99 Other pulmonary embolism without acute cor pulmonale (principal); E88.01 Alpha-1-antitrypsin deficiency; I82.432 Acute embolism and thrombosis of left popliteal vein; I82.442 Acute embolism and thrombosis of left tibial vein; I82.812 Embolism and thrombosis of superficial veins of left lower extremity; I82.492 Acute embolism and thrombosis of other specified deep vein of left lower extremity; I10 Essential (primary) hypertension; R09.02 Hypoxemia; K80.20 Calculus of gallbladder without cholecystitis without obstruction; F43.10 Post-traumatic stress disorder, unspecified; F41.9 Anxiety disorder, unspecified; Z79.899 Other long term (current) drug therapy; Z87.891 Personal history of nicotine dependence
CPT/HCPCS: 36415; 71020; 71275; 80048; 80053; 80076; 80305; 81001; 81025; 81240; 81241; 82550; 83090; 83735; 83880; 84484; 85025; 85027; 85301; 85302; 85306; 85379; 85610; 85612; 85613; 85730; 86147; 93005; 93306; 93970; 94640; 96361; 96365; 96366; 96375; C8929; J1170; J1644; J1650; J2270; J2405; J7030; Q9967; 99285-25

== ENCOUNTER 2016-06-07 22:45 | Emergency (ER) ==
--- NOTE | 2016-06-07 23:04 | PROVIDER DOCUMENTATION ---
HPI-Respiratory General - General Chief Complaint: Shortness of Breath Stated Complaint: FLANK PAIN/HURTS TO BREATH Time Seen by Provider: 06/07/16 23:02 Source: patient Allergies/Adverse Reactions: Patient Allergies Allergy/AdvReac Type Severity Reaction Status Date / Time amoxicillin [Amoxicillin] Allergy Intermediate RASH Verified 05/07/16 16:56 ibuprofen Allergy Intermediate SWELLING Verified 05/07/16 16:56 egg Allergy Unknown Verified 05/07/16 16:56 influenza virus vaccine, Allergy SWELLING Verified 05/07/16 16:56 specific [influenza virus vacc,specific] ketorolac tromethamine * Allergy SWELLING Verified 05/07/16 16:56 [From Toradol] meperidine HCl * Allergy NAUSEA/VOMI Verified 05/07/16 16:56 [From Demerol] TING midazolam HCl * [From Versed] Allergy SWELLING Verified 05/07/16 16:56 Penicillins Allergy SWELLING Verified 05/07/16 16:56 prochlorperazine Allergy SWELLING Verified 05/07/16 16:56 [From Compazine] prochlorperazine edisylate * Allergy SWELLING Verified 05/07/16 16:56 [From Compazine] prochlorperazine maleate * Allergy SWELLING Verified 05/07/16 16:56 [From Compazine] promethazine HCl * Allergy RASH Verified 05/07/16 16:56 [From Phenergan] propofol Allergy SWELLING Verified 05/07/16 16:56 tramadol HCl * [From Ultram] Allergy Unknown Verified 05/07/16 16:56 morphine AdvReac HIVES Verified 05/30/16 13:01 nalbuphine HCl * AdvReac Unknown Verified 05/07/16 16:56 [From Nubain] Home Medications: Home Medication List Medication Instructions Recorded Confirmed Last Taken Type Albuterol Sulfate Inhaler 2 puff INH Q6H PRN PRN 05/31/15 05/30/16 07/11/15 15: 00 History [Ventolin Hfa] Clonazepam [Klonopin] 2 mg PO Q8HR 07/13/15 05/30/16 12/12/15 History Lisinopril 10 mg PO DAILY 07/13/15 05/30/16 12/12/15 History Ranitidine HCl [Zantac 75] 150 mg PO BID 07/13/15 05/30/16 07/13/15 07:30 History Hlrwz-6-Engiuisyuw Inhibitor 1,200 mg IV ORDERED 12/12/15 05/31/16 Unknown History [Zemaira] Loratadine [Claritin] 10 mg PO DAILY 12/12/15 05/30/16 12/12/15 History Topiramate [Topamax] 50 mg PO BID 12/12/15 05/30/16 Unknown History Fluticasone 50 Mcg Nasal [place] 2 spray VANCE DAILY 05/30/16 05/30/16 Unknown History [Flonase] Furosemide [Lasix] 40 mg PO EVERY OTHER DAY 05/30/16 05/30/16 Unknown History Meclizine [Antivert] 25 mg PO DAILY 05/30/16 05/30/16 Unknown History Hydrocodone/APAP 10 mg/325 mg 1 each PO Q6H PRN PRN #30 tablet 06/02/16 Unknown Rx [[place]-10] Rivaroxaban [Xarelto] 15 mg PO BID #42 tablet 06/02/16 Unknown Rx Rivaroxaban [Xarelto] 20 mg PO DAILY #30 tablet 06/02/16 Unknown Rx - History of Present Illness-Resp Nature of Presenting Problem: 30 year old F presents to the ED with a cc of shortness of breath and epigastric ABD pain.. PT states that she was diagnosed last week with bilateral PEs. PT states that she was discharged on Saturday from [facility]. PT states that just [employer] she was seen at [facility]. Pt states they did a CT and it showed gall stones. Pt states that she said she already knew about them. PT states that they made her sign a paper and leave. RN at [facility] was called and she states that pt came in for epigastric pain. A CT was done and showed gallstones. PT then requested pain medications in which that request was denied. Nurse states that pt became mad and left. Quality of Pain: reports: aching Severity in ED: reports: moderate Onset/Duration: reports: 2 days ago Timing: reports: still present Associated Symptoms: reports: shortness of breath Similar Symptoms Previously?: Yes Recently seen or treated by another doctor?: Yes Review of Systems - Adult - REVIEW OF SYSTEMS - ADULT Constitutional: denies: chills, fever Eyes: reports: no symptoms reported Ears, Nose, Mouth & Throat: denies: ear pain, throat pain Cardiovascular: denies: chest pain, palpitations Respiratory: reports: shortness of breath. denies: cough Gastrointestinal: reports: abdominal pain. denies: nausea, vomiting Genitourinary: reports: no symptoms reported Musculoskeletal: reports: no symptoms reported Integumentary: reports: no symptoms reported Neurological: reports: no symptoms reported Psychiatric: reports: no symptoms reported Endocrine: reports: no symptoms reported Hematologic/Lymphatic: reports: no symptoms reported Allergic/Immunologic: reports: no symptoms reported All Other Systems: Reviewed and Negative Past History - Adult - PAST MEDICAL HISTORY-ADULT Review of Records: reports: Nursing Assessment Review, Medications Reviewed Major Childhood Illnesses: reports: denies history Cardiovascular: reports: HTN Respiratory: reports: asthma, COPD, other (alpha 1) Gastrointestinal: reports: denies history Obstetrical/Gynecological: reports: denies history Genitourinary: reports: denies history Musculoskeletal: reports: denies history Neurological: reports: denies history Psychiatric: reports: anxiety, ptsd, other (panic attack) Endocrine/Immune: reports: denies history Other Conditions: reports: denies history - PRIOR SURGERIES/PROCEDURES Surgical/Procedure History: reports: reviewed, not pertinent, BTL - PRIOR HOSPITALIZATIONS Prior Hospitalizations: reports: none - IMMUNIZATION STATUS Childhood Immunizations: See Nurse Assessment Flu Vaccine: See Nurse Assessment - FAMILY HISTORY Family History: reviewed, not pertinent - SOCIAL HISTORY Smoking: non-smoker Substance Use: none/never Alcohol Use Frequency: never Physical Exam-General - PHYSICAL EXAM-ADULT Initial Vital Signs Reviewed: Yes - CONSTITUTIONAL General Appearance: alert, mild distress - RESPIRATORY Respiratory: chest non-tender, lungs clear, normal breath sounds - CARDIOVASCULAR Cardiovascular: normal peripheral pulses, regular rate, rhythm, no edema - GASTROINTESTINAL (ABDOMEN) Abdominal Exam: normal bowel sounds, soft, tenderness (diffusely) - MUSCULOSKELETAL Extremity: normal inspection - SKIN Integumentary: normal color, normal turgor, warm/dry - PSYCHIATRIC Psych/Mental Status: normal mood/affect, normal thought content, normal thought process, oriented x 3 Progress - PLAN OF CARE/RESULTS Progress/Plan/Lab Results: plan of care: imaging, labs, medications, EKG Orders Category Date Time Status Cardiac Monitoring DIRECTED Care 06/07/16 23:27 Active Oxygen Therapy- ED Nursing DIRECTED Care 06/07/16 23:27 Active Saline Loc NOW Care 03/09/17 23:27 Active CTA [ANGIOGRAM/PULMONARY ARTERIES] [CT] Stat Exams 06/07/16 23:28 Taken CBC WITH ELECTRONIC DIFF [HEME] Stat Lab 06/07/16 23:10 Completed CK PROFILE [SP CHEM] Stat Lab 06/07/16 23:10 Completed COMPREHENSIVE METABOLIC PANEL [CHEM] Stat Lab 06/07/16 23:10 Completed MAGNESIUM [CHEM] Stat Lab 06/07/16 23:10 Completed PRO B-NATRIURETIC PEPTIDE Stat Lab 06/07/16 23:10 Com[address]IME WITH INR PL [COAG] Stat Lab 06/07/16 23:[address] [COAG] Stat Lab 06/07/16 23:10 Completed TROPONIN T Stat Lab 06/07/16 23:10 Completed Orphenadrine [Norflex] Med 06/08/16 01:30 Discontinued 60 mg IV NOW ONE EKG [EKG] Stat Ther 06/07/16 23:27 Ordered Laboratory Tests 06/07/16 06/07/16 06/07/16 23:10 23:10 23:10 WBC RBC Hgb Hct MCV MCH MCHC RDW Std Deviation Plt Count MPV Immature Gran % (Auto) Neut % (Auto) Lymph % (Auto) [place] % (Auto) Eos % (Auto) Baso % (Auto) Immature Gran # (Auto) Neut # (Auto) Lymph # (Auto) [place] # (Auto) Eos # (Auto) Baso # (Auto) PT INR APTT (Factor Assay) Sodium 131 L Potassium 4.3 Chloride 97 L Carbon Dioxide 24 L Anion Gap 10 BUN 11 Creatinine 0.8 Estimated GFR/1.73 m2 > 60 BUN/Creatinine Ratio 14 Glucose 92 Calculated Osmolality 262 Calcium 10.3 H Magnesium 2.1 Total Bilirubin 0.20 AST 35 H ALT 35 Alkaline Phosphatase 79 Creatine Kinase 86 Troponin T < 0.010 [id number]-Oejpdphtbvp Pept 57 Total Protein 7.9 Albumin 4.8 Globulin 3.0 Albumin/Globulin Ratio 2.0 06/07/16 06/07/16 23:10 23:10 WBC 9.05 RBC 4.54 Hgb 12.7 Hct 38.6 MCV 85.0 MCH 28.0 MCHC 32.9 L RDW Std Deviation 12.1 Plt Count 351 MPV 11.6 H Immature Gran % (Auto) 0.1 Neut % (Auto) 58.9 Lymph % (Auto) 31.4 [place] % (Auto) 5.3 Eos % (Auto) 4.1 Baso % (Auto) 0.2 Immature Gran # (Auto) 0.01 Neut # (Auto) 5.33 Lymph # (Auto) 2.84 [place] # (Auto) 0.48 Eos # (Auto) 0.37 Baso # (Auto) 0.02 PT 17.1 H INR 1.37 H APTT (Factor Assay) 40.9 Sodium Potassium Chloride Carbon Dioxide Anion Gap BUN Creatinine Estimated GFR/1.73 m2 BUN/Creatinine Ratio Glucose Calculated Osmolality Calcium Magnesium Total Bilirubin AST ALT Alkaline Phosphatase Creatine Kinase Troponin T [id number]-Wjyhatgumzc Pept Total Protein Albumin Globulin Albumin/Globulin Ratio Vital Signs - 24 hr 06/07/16 22:53 Temperature 97.4 F L Pulse Rate 80 Respiratory 22 Rate Blood Pressure 118/77 Pt given results and will be d/c home w/o rx to follow up with PCP. Pt verbally understood instructions. PT remained clinically stable throughout the course of the ED stay and will return if symptoms worsen. - EKG 1 Time of EKG reading by physician:: 23:58 EKG Read and Signed by:: Nguyễn Barton EKG Interpretation (*Must complete 3 of following elements*): Normal Rate: 67 Rhythm: NSR [place]: normal - CT/MRI 1 CT Study: Angiogram Impression: Abnormal (There are extensive pulmonary emboli bilaterally, similar to previous.: Dr. Oliver(real rad radiologist)) Attestation - Scribe Verification/Attestation Scribe:: Ally Cardona Acting as Scribe for:: Nguyễn Barton Scribe documention review:: This chart was documented by a scribe and accurately reflects the service the provider performed and the decisions made by the provider. Physician Attestation - Physician Attestation I, the provider, attest to the following statement:: Nguyễn Barton Physician documentation Attestation:: This documentation recorded by the scribe accurately reflects the service I personally performed and the decisions made by me.
[2016-06-07 23:33] LABS: MANUAL DIFF NEEDED? NO
[2016-06-07 23:44] LABS: BASO% 0.2 % (0.0-0.8); EOS# 0.37 X1000 (0.0-0.7); EOS% 4.1 % (0.0-10.0); HEMATOCRIT 38.6 % (37.0-47.0); HEMOGLOBIN 12.7 g/dL (12.0-16.0); IMM GRAN# 0.01 X1000 (0.0-0.04); IMM GRAN% 0.1 % (0.0-0.5); LYMPH# 2.84 X1000 (1.2-3.4); LYMPH% 31.4 % (20.5-51.1); MCHC 32.9 g/dL (33-37); MONO# 0.48 X1000 (0.11-0.59); MONO% 5.3 % (1.7-9.3); MPV 11.6 FL (7.4-10.4); NEUT% 58.9 % (42.2-75.2); PLT 351 X1000 (130-400); RBC 4.54 XMIL (4.2-5.4)
[2016-06-07 23:52] LABS: INR 1.37 (0.86-1.15); PROTIME 17.1 Seconds (12.1-15.5)
[2016-06-07 23:53] LABS: PTT PL 40.9 Seconds (22.6-43.9)
[2016-06-07 23:57] LABS: AGAP 10; ALBUMIN 4.8 g/dL (3.5-5.0); ALKALINE PHOSPHATASE 79 U/L (32-104); BUN 11 mg/dL (8-22); CALCIUM 10.3 mg/dL (8.8-10.2); CHLORIDE 97 mmol/L (98-107); CK PROFILE 86 U/L (24-173); COSMO 262; GOT 35 U/L (10-30); GPT 35 U/L (10-36); MAGNESIUM 2.1 mg/dL (1.5-2.7); POTASSIUM 4.3 mmol/L (3.5-5.1); SODIUM 131 mmol/L (136-145); TCO2 24 mmol/L (25-35); TOTAL PROTEIN 7.9 g/dL (6.3-8.3)
[2016-06-08] MEDS ORDERED: NORFLEX IV ONE (01:30)
[2016-06-08] MEDS ORDERED: NORCO-7.5 PO ONE (02:07)
[2016-06-08 03:20] VITALS: BP 102/79
--- NOTE | 2016-06-08 05:43 | EKG Report ---
Test Performed on : 06/07/2016 11:58:20 PM Test Reason : CHEST PAIN Blood Pressure : / mmHG Vent. Rate : 067 BPM Atrial Rate : 067 BPM P-R Int : 158 ms QRS Dur : 072 ms QT Int : 418 ms P-R-T Axes : 020 031 021 degrees QTc Int : 441 ms Normal sinus rhythm. Normal ECG When compared with ECG of 30-MAY-2016 11:48, No significant change was found Unconfirmed Result
--- NOTE | 2016-06-08 07:46 | Diag Imaging Result Document ---
PROCEDURE NAME: ANGIOGRAM/PULMONARY ARTERIES - 06/07/2016 CT OF THE CHEST WITH INTRAVENOUS CONTRAST: FINDINGS: There are filling defects in the pulmonary arteries beyond the main pulmonary arteries bilaterally and some thrombus extends into the right main pulmonary artery for a few centimeters. Most of the filling defects are in the lower lobe branches. These abnormalities were largely present at the time of the previous examination of 05/30/2016. The thrombus which extended into the main pulmonary artery on the left on the previous study has apparently resolved. There has been decrease in pleural fluid on the left side since the previous study. 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 Otherwise, there has been no significant change in the appearance of the chest. IMPRESSION: Slight improvement in pulmonary emboli particularly with regard to the main pulmonary artery on the left. 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
== END 2016-06-08 02:25 | disposition home or self-care (01) ==
LOC: P.ED 22:45
DX: R06.02 Shortness of breath (principal); R07.1 Chest pain on breathing; R10.13 Epigastric pain; R10.819 Abdominal tenderness, unspecified site; I10 Essential (primary) hypertension; J45.909 Unspecified asthma, uncomplicated; J44.9 Chronic obstructive pulmonary disease, unspecified; F41.9 Anxiety disorder, unspecified; Z79.899 Other long term (current) drug therapy
CPT/HCPCS: 71275; 80053; 82550; 83735; 83880; 84484; 85025; 85610; 85730; 93005; J2360; Q9967

== ENCOUNTER 2016-06-14 20:13 | Emergency (ER) ==
[2016-06-14 20:43] LABS: MANUAL DIFF NEEDED? NO
[2016-06-14 20:45] LABS: BASO% 0.3 % (0.0-0.8); EOS% 4.2 % (0.0-10.0); HEMATOCRIT 38.3 % (37.0-47.0); HEMOGLOBIN 12.6 g/dL (12.0-16.0); IMM GRAN# 0.01 X1000 (0.0-0.04); IMM GRAN% 0.1 % (0.0-0.5); LYMPH# 2.59 X1000 (1.2-3.4); LYMPH% 27.4 % (20.5-51.1); MCH 27.8 PG (27-31); MCHC 32.9 g/dL (33-37); MCV 84.4 FL (81-99); MONO# 0.66 X1000 (0.11-0.59); MPV 11.2 FL (7.4-10.4); PLT 312 X1000 (130-400); RBC 4.54 XMIL (4.2-5.4)
--- NOTE | 2016-06-14 20:49 | ED EKG INTERP ---
EKG Interpretation - EKG Time of EKG reading by physician:: 20:37 EKG Read and Signed by:: Nguyễn Barton EKG Interpretation (*Must complete 3 of following elements*): Normal Rate: 68 Rhythm: NSR [place]: normal QRS: normal Attestation - Scribe Verification/Attestation Scribe:: Corazon Morgan Acting as Scribe for:: Nguyễn Barton Scribe documention review:: This chart was documented by a scribe and accurately reflects the service the provider performed and the decisions made by the provider. Physician Attestation - Physician Attestation I, the provider, attest to the following statement:: Nguyễn Barton Physician documentation Attestation:: This documentation recorded by the scribe accurately reflects the service I personally performed and the decisions made by me.
--- NOTE | 2016-06-14 20:53 | EKG Report ---
Test Performed on : 06/14/2016 8:36:22 PM Test Reason : CHEST PAIN Blood Pressure : / mmHG Vent. Rate : 068 BPM Atrial Rate : 068 BPM P-R Int : 140 ms QRS Dur : 074 ms QT Int : 426 ms P-R-T Axes : 017 023 014 degrees QTc Int : 452 ms Normal sinus rhythm. Normal ECG When compared with ECG of 07-JUN-2016 23:58, (Unconfirmed) No significant change was found Unconfirmed Result
[2016-06-14 21:02] LABS: INR 1.66 (0.86-1.15); PROTIME 19.8 Seconds (12.1-15.5)
[2016-06-14] MEDS ORDERED: DILAUDID IV ONE ×2 (21:02→22:25)
[2016-06-14] MEDS ORDERED: ZOFRAN IV ONE ×2 (21:02→22:25)
[2016-06-14 21:03] LABS: PTT PL 40.4 Seconds (22.6-43.9)
[2016-06-14 21:09] LABS: AGAP 13; ALBUMIN 4.6 g/dL (3.5-5.0); ALKALINE PHOSPHATASE 66 U/L (32-104); BUN 6 mg/dL (8-22); CALCIUM 9.1 mg/dL (8.8-10.2); CHLORIDE 99 mmol/L (98-107); CK PROFILE 60 U/L (24-173); COSMO 273; GOT 26 U/L (10-30); GPT 36 U/L (10-36); MAGNESIUM 2.1 mg/dL (1.5-2.7); POTASSIUM 3.5 mmol/L (3.5-5.1); SODIUM 138 mmol/L (136-145); TCO2 27 mmol/L (25-35); TOTAL PROTEIN 7.8 g/dL (6.3-8.3)
--- NOTE | 2016-06-14 21:22 | PROVIDER DOCUMENTATION ---
HPI-General Adult - General Source: patient - History of Present Illness -Gen Adult Nature of Presenting Problems: PT IS A 30YOF PRESENTING TO THE ED C/O CP AND MIGRAINE. PT HAS AN INFUSION AND NORMALLY SHE GETS A MIGRAINE AFTER HER INFUSIONS BUT TODAY SHES HAVING CP WHICH IS NOT NORMAL. SHE WAS ADMITTED X2 WEEKS AGO FOR BILATERAL PE'S AND SHE IS HAVING NAUSEA, VOMITING, AND PHOTOPHOBIA WITH THE MIGRAINE. NO OTHER COMPLAINTS AT THIS TIME Location of Pain/Injury: reports: head, chest Pain Radiation: reports: no radiation Quality of Pain: reports: aching, fullness, throbbing Severity: reports: moderate Onset/Duration: reports: 1-3 hours ago Timing: reports: still present Context/Activities at Onset: reports: light activity Modifying Factors: improves with: nothing Associated Symptoms: reports: anxiety, chest pain, nausea, vomiting. denies: diaphoresis, diarrhea Similar Symptoms Previously?: No Recently seen or treated by another doctor?: No <Corazon Morgan - Last Filed: 06/14/16 21:17> <Delfino Neal - Last Filed: 06/14/16 23:05> - General Chief Complaint: Chest Pain Stated Complaint: CHEST PAIN,SOB,MIGRAINE Time Seen by Provider: 06/14/16 20:30 Allergies/Adverse Reactions: Patient Allergies Allergy/AdvReac Type Severity Reaction Status Date / Time amoxicillin [Amoxicillin] Allergy Intermediate RASH Verified 06/14/16 20:30 ibuprofen Allergy Intermediate SWELLING Verified 06/14/16 20:30 egg Allergy Unknown Verified 06/14/16 20:30 influenza virus vaccine, Allergy SWELLING Verified 06/14/16 20:30 specific [influenza virus vacc,specific] ketorolac tromethamine * Allergy SWELLING Verified 06/14/16 20:30 [From Toradol] meperidine HCl * Allergy NAUSEA/VOMI Verified 06/14/16 20:30 [From Demerol] TING midazolam HCl * [From Versed] Allergy SWELLING Verified 06/14/16 20:30 orphenadrine citrate * Allergy SWELLING Verified 06/14/16 20:30 [From Norflex] Penicillins Allergy SWELLING Verified 06/14/16 20:30 prochlorperazine Allergy SWELLING Verified 06/14/16 20:30 [From Compazine] prochlorperazine edisylate * Allergy SWELLING Verified 06/14/16 20:30 [From Compazine] prochlorperazine maleate * Allergy SWELLING Verified 06/14/16 20:30 [From Compazine] promethazine HCl * Allergy RASH Verified 06/14/16 20:30 [From Phenergan] propofol Allergy SWELLING Verified 06/14/16 20:30 tizanidine HCl * Allergy SWELLING Verified 06/14/16 20:30 [From Zanaflex] tramadol HCl * [From Ultram] Allergy Unknown Verified 06/14/16 20:30 morphine AdvReac HIVES Verified 06/14/16 20:30 nalbuphine HCl * AdvReac Unknown Verified 06/14/16 20:30 [From Nubain] Home Medications: Home Medication List Medication Instructions Recorded Confirmed Last Taken Type Albuterol Sulfate Inhaler 2 puff INH Q6H PRN PRN 05/31/15 06/14/16 07/11/15 15: 00 History [Ventolin Hfa] Clonazepam [Klonopin] 2 mg PO Q8HR 07/13/15 06/14/16 12/12/15 History Ranitidine HCl [Zantac 75] 150 mg PO BID 07/13/15 06/14/16 07/13/15 07:30 History Tkaoy-2-Xsrvidhgsg Inhibitor 1,200 mg IV ORDERED 12/12/15 06/14/16 Unknown History [Zemaira] Loratadine [Claritin] 10 mg PO DAILY 12/12/15 06/14/16 12/12/15 History Topiramate [Topamax] 50 mg PO BID 12/12/15 06/14/16 Unknown History Fluticasone 50 Mcg Nasal Ovid 2 spray VANCE DAILY 05/30/16 06/14/16 Unknown History [Flonase] Furosemide [Lasix] 40 mg PO EVERY OTHER DAY 05/30/16 06/14/16 Unknown History Meclizine [Antivert] 25 mg PO DAILY 05/30/16 06/14/16 Unknown History Hydrocodone/APAP 10 mg/325 mg 1 each PO Q6H PRN PRN #30 tablet 06/02/16 Unknown Rx [[place]-10] Rivaroxaban [Xarelto] 15 mg PO BID #42 tablet 06/02/16 06/14/16 Unknown Rx Review of Systems - Adult - REVIEW OF SYSTEMS - ADULT Constitutional: reports: no symptoms reported Eyes: reports: no symptoms reported Ears, Nose, Mouth & Throat: reports: no symptoms reported Cardiovascular: reports: see HPI, chest pain. denies: palpitations, poor circulation, syncope Respiratory: reports: no symptoms reported Gastrointestinal: reports: see HPI, nausea, vomiting. denies: diarrhea, difficulty swallowing Genitourinary: reports: no symptoms reported Musculoskeletal: reports: no symptoms reported Integumentary: reports: no symptoms reported Neurological: reports: see HPI, headache/migraines. denies: numbness, seizure, tremors Psychiatric: reports: no symptoms reported Endocrine: reports: no symptoms reported Hematologic/Lymphatic: reports: no symptoms reported Allergic/Immunologic: reports: no symptoms reported All Other Systems: Reviewed and Negative <Corazon Morgan - Last Filed: 06/14/16 21:17> Past History - Adult - PAST MEDICAL HISTORY-ADULT Review of Records: reports: Old Records Reviewed, Nursing Assessment Review, Medications Reviewed, Social history reviewed & non-contributory. Major Childhood Illnesses: reports: denies history Cardiovascular: reports: HTN Respiratory: reports: asthma, COPD, other (alpha 1) Gastrointestinal: reports: denies history Obstetrical/Gynecological: reports: denies history Genitourinary: reports: denies history Musculoskeletal: reports: denies history Neurological: reports: denies history Psychiatric: reports: anxiety, ptsd, other (panic attack) Endocrine/Immune: reports: denies history Other Conditions: reports: denies history - PRIOR SURGERIES/PROCEDURES Surgical/Procedure History: reports: reviewed, not pertinent, BTL - PRIOR HOSPITALIZATIONS Prior Hospitalizations: reports: none - IMMUNIZATION STATUS Childhood Immunizations: See Nurse Assessment Flu Vaccine: See Nurse Assessment - FAMILY HISTORY Family History: reviewed, not pertinent - SOCIAL HISTORY Smoking: denies, quit greater than 1 year Substance Use: none/never, denies Alcohol Use Frequency: never Living Situation: family <Corazon Morgan - Last Filed: 06/14/16 21:17> Physical Exam-General - PHYSICAL EXAM-ADULT Initial Vital Signs Reviewed: Yes - CONSTITUTIONAL General Appearance: alert, moderate distress. negative: appears well, no apparent distress - EYES Eyes: PERRL/EOMI, pink conjunctivae, fundi clear, no AV nicking - HEAD, EARS, NOSE, MOUTH & THROAT HENMT: normocephalic/atraumatic, moist mucous membranes, normal ENT inspection, TMs normal, pharynx normal - NECK Neck: non-tender, full range of motion, supple, normal inspection - RESPIRATORY Respiratory: chest non-tender, lungs clear, normal breath sounds, no pleuratic chest pain, no respiratory distress, no accessory muscle use - CARDIOVASCULAR Cardiovascular: normal peripheral pulses, regular rate, rhythm, no edema, no gallop, no JVD, no murmur - GASTROINTESTINAL (ABDOMEN) Abdominal Exam: normal bowel sounds, non tender, soft, no organomegaly, no pulsatile mass - LYMPHATIC Lymphatic: no adenopathy - MUSCULOSKELETAL Back Exam: normal inspection, no CVA tenderness, no vertebral tenderness Extremity: normal range of motion, non-tender, normal gait, normal inspection, no pedal edema, no calf tenderness, normal capillary refill, pelvis stable - SKIN Integumentary: normal color, normal turgor, warm/dry - NEUROLOGIC Neurologic: plating foreman II-XII nml as tested, grossly normal, no motor/sensory deficits - PSYCHIATRIC Psych/Mental Status: normal thought content, normal thought process, oriented x 3, anxious <Corazon Morgan - Last Filed: 06/14/16 21:17> Progress - PLAN OF CARE/RESULTS Progress/Plan/Lab Results: Laboratory Tests 06/14/16 06/14/16 06/14/16 20:30 20:30 20:30 WBC RBC Hgb Hct MCV MCH MCHC RDW Std Deviation Plt Count MPV Immature Gran % (Auto) Neut % (Auto) Lymph % (Auto) [place] % (Auto) Eos % (Auto) Baso % (Auto) Immature Gran # (Auto) Neut # (Auto) Lymph # (Auto) [place] # (Auto) Eos # (Auto) Baso # (Auto) PT INR APTT (Factor Assay) Sodium 138 Potassium 3.5 Chloride 99 Carbon Dioxide 27 Anion Gap 13 BUN 6 L Creatinine 0.8 Estimated GFR/1.73 m2 > 60 BUN/Creatinine Ratio 8 Glucose 91 Calculated Osmolality 273 Calcium 9.1 Magnesium 2.1 Total Bilirubin 0.20 AST 26 ALT 36 Alkaline Phosphatase 66 Creatine Kinase 60 Troponin T < 0.010 Gdk-E-Eksobdvwebo Pept 88 Total Protein 7.8 Albumin 4.6 Globulin 3.0 Albumin/Globulin Ratio 1.0 06/14/16 06/14/16 20:30 20:30 WBC 9.44 RBC 4.54 Hgb 12.6 Hct 38.3 MCV 84.4 MCH 27.8 MCHC 32.9 L RDW Std Deviation 12.1 Plt Count 312 MPV 11.2 H Immature Gran % (Auto) 0.1 Neut % (Auto) 61.0 Lymph % (Auto) 27.4 [place] % (Auto) 7.0 Eos % (Auto) 4.2 Baso % (Auto) 0.3 Immature Gran # (Auto) 0.01 Neut # (Auto) 5.75 Lymph # (Auto) 2.59 [place] # (Auto) 0.66 H Eos # (Auto) 0.40 Baso # (Auto) 0.03 PT 19.8 H INR 1.66 H APTT (Factor Assay) 40.4 Sodium Potassium Chloride Carbon Dioxide Anion Gap BUN Creatinine Estimated GFR/1.73 m2 BUN/Creatinine Ratio Glucose Calculated Osmolality Calcium Magnesium Total Bilirubin AST ALT Alkaline Phosphatase Creatine Kinase Troponin T Qsj-S-Oyibroyxvmb Pept Total Protein Albumin Globulin Albumin/Globulin Ratio Orders Category Date Time Status Cardiac Monitoring DIRECTED Care 06/14/16 20:35 Active Oxygen Therapy- ED Nursing DIRECTED Care 06/14/16 20:35 Active Saline Loc NOW Care 06/14/16 20:35 Active ANGIOGRAM/PULMONARY ARTERIES [CT] Stat Exams 06/14/16 20:46 Draft CBC WITH ELECTRONIC DIFF [HEME] Stat Lab 06/14/16 20:30 Completed CK PROFILE [SP CHEM] Stat Lab 06/14/16 20:30 Completed COMPREHENSIVE METABOLIC PANEL [CHEM] Stat Lab 06/14/16 20:30 Completed MAGNESIUM [CHEM] Stat Lab 06/14/16 20:30 Completed PRO B-NATRIURETIC PEPTIDE Stat Lab 06/14/16 20:30 Completed [address]IME WITH INR PL [COAG] Stat Lab 06/14/16 20:[address] [COAG] Stat Lab 06/14/16 20:30 Completed TROPONIN T Stat Lab 06/14/16 20:30 Completed Hydromorphone [Dilaudid] Med 06/14/16 21:02 Discontinued 1 mg IV NOW ONE Ondansetron [Zofran] Med 06/14/16 21:02 Discontinued 4 mg IV NOW ONE EKG [EKG] Stat Ther 06/14/16 20:35 Draft Vital Signs Temp Pulse Resp BP Pulse Ox 06/14/16 20:23 97.6 F 66 14 122/77 100 amoxicillin [Amoxicillin] Allergy (Intermediate, Verified 06/14/16 20:30) RASH ibuprofen Allergy (Intermediate, Verified 06/14/16 20:30) SWELLING egg Allergy (Verified 06/14/16 20:30) Unknown influenza virus vaccine, specific [influenza virus vacc,specific] Allergy ( Verified 06/14/16 20:30) SWELLING ketorolac tromethamine * [From Toradol] Allergy (Verified 06/14/16 20:30) SWELLING meperidine HCl * [From Demerol] Allergy (Verified 06/14/16 20:30) NAUSEA/VOMITING midazolam HCl * [From Versed] Allergy (Verified 06/14/16 20:30) SWELLING orphenadrine citrate * [From Norflex] Allergy (Verified 06/14/16 20:30) SWELLING Penicillins Allergy (Verified 06/14/16 20:30) SWELLING prochlorperazine [From Compazine] Allergy (Verified 06/14/16 20:30) SWELLING prochlorperazine edisylate * [From Compazine] Allergy (Verified 06/14/16 20:30) SWELLING prochlorperazine maleate * [From Compazine] Allergy (Verified 06/14/16 20:30) SWELLING promethazine HCl * [From Phenergan] Allergy (Verified 06/14/16 20:30) RASH propofol Allergy (Verified 06/14/16 20:30) SWELLING tizanidine HCl * [From Zanaflex] Allergy (Verified 06/14/16 20:30) SWELLING tramadol HCl * [From Ultram] Allergy (Verified 06/14/16 20:30) Unknown morphine Adverse Reaction (Verified 06/14/16 20:30) HIVES nalbuphine HCl * [From Nubain] Adverse Reaction (Verified 06/14/16 20:30) Unknown Albuterol Sulfate Inhaler [Ventolin Hfa] 2 puff INH Q6H PRN PRN 05/31/15 Clonazepam [Klonopin] 2 mg PO Q8HR 07/13/15 Ranitidine HCl [Zantac 75] 150 mg PO BID 07/13/15 Dgoxf-1-Zdyducugoq Inhibitor [Zemaira] 1,200 mg IV ORDERED 12/12/15 Loratadine [Claritin] 10 mg PO DAILY 12/12/15 Topiramate [Topamax] 50 mg PO BID 12/12/15 Fluticasone 50 Mcg Nasal Ovid [Flonase] 2 spray VANCE DAILY 05/30/16 Furosemide [Lasix] 40 mg PO EVERY OTHER DAY 05/30/16 Meclizine [Antivert] 25 mg PO DAILY 05/30/16 Hydrocodone/APAP 10 mg/325 mg [[place]-10] 1 each PO Q6H PRN PRN #30 tablet Rivaroxaban [Xarelto] 15 mg PO BID #42 tablet 06/02/16 Laboratory 06/14/16 06/14/16 06/14/16 20:30 20:30 20:30 WBC 9.44 RBC 4.54 Hgb 12.6 Hct 38.3 MCV 84.4 MCH 27.8 MCHC 32.9 L RDW Std Deviation 12.1 Plt Count 312 MPV 11.2 H Immature Gran % (Auto) 0.1 Neut % (Auto) 61.0 Lymph % (Auto) 27.4 [place] % (Auto) 7.0 Eos % (Auto) 4.2 Baso % (Auto) 0.3 Immature Gran # (Auto) 0.01 Neut # (Auto) 5.75 Lymph # (Auto) 2.59 [place] # (Auto) 0.66 H Eos # (Auto) 0.40 Baso # (Auto) 0.03 PT 19.8 H INR 1.66 H APTT (Factor Assay) 40.4 Sodium Potassium Chloride Carbon Dioxide Anion Gap BUN Creatinine Estimated GFR/1.73 m2 BUN/Creatinine Ratio Glucose Calculated Osmolality Calcium Magnesium Total Bilirubin AST ALT Alkaline Phosphatase Creatine Kinase Troponin T Jdx-G-Ecqnzsxqova Pept 88 Total Protein Albumin Globulin Albumin/Globulin Ratio 06/14/16 06/14/16 20:30 20:30 WBC RBC Hgb Hct MCV MCH MCHC RDW Std Deviation Plt Count MPV Immature Gran % (Auto) Neut % (Auto) Lymph % (Auto) [place] % (Auto) Eos % (Auto) Baso % (Auto) Immature Gran # (Auto) Neut # (Auto) Lymph # (Auto) [place] # (Auto) Eos # (Auto) Baso # (Auto) PT INR APTT (Factor Assay) Sodium 138 Potassium 3.5 Chloride 99 Carbon Dioxide 27 Anion Gap 13 BUN 6 L Creatinine 0.8 Estimated GFR/1.73 m2 > 60 BUN/Creatinine Ratio 8 Glucose 91 Calculated Osmolality 273 Calcium 9.1 Magnesium 2.1 Total Bilirubin 0.20 AST 26 ALT 36 Alkaline Phosphatase 66 Creatine Kinase 60 Troponin T < 0.010 Idn-T-Ljnpmsvrqcw Pept Total Protein 7.8 Albumin 4.6 Globulin 3.0 Albumin/Globulin Ratio 1.0 - CT/MRI 1 CT Study: Angiogram Impression: Abnormal Comparison with other Films: no changes (Per radiologist. PE has maybe a very slight decrease in size. But otherwise no changes from previous CT.) <Delfino Neal - Last Filed: 06/14/16 23:05> Departure <Corazon Morgan - Last Filed: 06/14/16 21:17> - Departure Time of Disposition Order: 22:26 Certified Medical Emergency: Emergent <Delfino Neal - Last Filed: 06/14/16 23:05> - Departure DIAGNOSIS: Atypical chest pain Pulmonary emboli Qualifiers: Pulmonary embolism type: other Chronicity: chronic Acute cor pulmonale presence : without acute cor pulmonale Qualified Code(s): I27.82 - Chronic pulmonary embolism Disposition: HOME 01 Condition: Stable Additional Instructions: ED Follow Up Instructions: You have been treated by a care provider in the Emergency Department. These instructions are being provided to you so you can have an understanding of how to care for yourself upon discharge. Upon discharge from the Emergency Department, you are responsible for making arrangements for follow-up care by a physician of your choice. Take all prescribed medications as directed. Return to the Emergency Department immediately for any new or worsening symptoms. You may call the Physician Referral phone number at [phone] to obtain a list of Physicians who are taking new patients. Referrals: Isabel Tilley [Primary Care Provider] - Forms: Return to School/Parent Work Instructions: Nonspecific Chest Pain, Pulmonary Embolism Attestation - Scribe Verification/Attestation Scribe:: Corazon Morgan Acting as Scribe for:: Delfino Neal Scribe documention review:: This chart was documented by a scribe and accurately reflects the service the provider performed and the decisions made by the provider. <Corazon Morgan - Last Filed: 06/14/16 21:17> - Physician/ SALVADOR Attestation Patient care was provided by Advanced Practice Provider:: Yes Advanced Practice Provider:: Delfino Neal Advanced Practice Provider documentation review:: The Mid-level provider documentation, treatment plan and medical decision making was reviewed by the physician who agrees with all treatment and medical decision making by the MLP. <Delfino Neal - Last Filed: 06/14/16 23:05> Physician Attestation - Physician Attestation I, the provider, attest to the following statement:: Nguyễn Barton Physician documentation Attestation:: This documentation recorded by the scribe accurately reflects the service I personally performed and the decisions made by me. <Corazon Morgan - Last Filed: 06/14/16 21:17>
--- NOTE | 2016-06-14 21:47 | Diag Imaging Result Document ---
PROCEDURE NAME: ANGIOGRAM/PULMONARY ARTERIES - 06/14/2016 CT PULMONARY ANGIOGRAM WITH INTRAVENOUS CONTRAST: A CT dose reduction protocol was used. COMPARISON: 06/08/2016. FINDINGS: Axial CT images of the chest were obtained after administering intravenous contrast. Coronal MIP images were generated. There is perhaps trivial decrease in quantity of pulmonary emboli, mostly in the lower lobes arteries. No new abnormalities. Stable, small infiltrates at the left lung base. IMPRESSION: Insignificant change from prior. No new abnormalities. [facility]
[2016-06-14 22:36] VITALS: BP 123/82
== END 2016-06-14 22:47 | disposition home or self-care (01) ==
LOC: P.ED 20:13
DX: I27.82 Chronic pulmonary embolism (principal); R07.89 Other chest pain; R51 Headache; R11.2 Nausea with vomiting, unspecified; H53.149 Visual discomfort, unspecified; R06.02 Shortness of breath; I10 Essential (primary) hypertension; J45.909 Unspecified asthma, uncomplicated; J44.9 Chronic obstructive pulmonary disease, unspecified; F41.9 Anxiety disorder, unspecified; Z79.01 Long term (current) use of anticoagulants; Z79.899 Other long term (current) drug therapy; Z87.891 Personal history of nicotine dependence
CPT/HCPCS: 71275; 80053; 82550; 83735; 83880; 84484; 85025; 85610; 85730; 93005; J1170; J2405; Q9967